=== PATIENT | female | born 1960 | race Hispanic/Latino ===

== ENCOUNTER 2019-05-06 17:54 | Inpatient (IN) | payer OTHER ==
[2019-05-06] MEDS ORDERED: levETIRAcetam 1000 MG/NS 0.75% 1,000 MG/100 ML BAG IV ONE (18:01)
--- NOTE | 2019-05-06 18:03 | Emergency Department Report ---
ED General Adult HPI - General Chief complaint: Weakness Stated complaint: SEIZURE Time Seen by Provider: 05/06/19 17:59 Source: patient, EMS (verbal report received from emergency medical services.EMS documentation not available at the time of chart dictation), RN notes reviewed Mode of arrival: Stretcher Limitations: Altered Mental Status - History of Present Illness Initial comments: The patient is a 59-year-old female. This patient is not known to this provider previously. The patient is brought to the hospital by emergency medical services for altered mental status and convulsive activity. EMS reports patient found on floor, unknown what her downtime is. She may have had a convulsive event. They report that the patient had a normal Accu-Chek in the field. Upon arrival to the emergency room, the patient is altered, somnolent, and hypoxic. She is moving 4 extremities spontaneously. Her Accu-Chek is within normal limits. Patient gradually improved her mental status. She states she does not remember seizing or passing out. She complains of central nonradiating chest pain. She denies additional injuries or complaints. She states she was admitted to [facility] for "my heart." She cannot further elaborate on this. -: Sudden Quality: other Consistency: other Improves with: other Worsens with: other - Related Data Allergies Allergy/AdvReac Type Severity Reaction Status Date / Time codeine AdvReac Hives Verified 05/06/19 19:37 ED Review of Systems ROS: Stated complaint: SEIZURE Other details as noted in HPI Comment: Unobtainable due to pts medical conditions Cardiovascular: chest pain ED Physical Exam - General Limitations: Altered Mental Status General appearance: lethargic, other (initially listless, difficult to arouse, gradually becomes more responsive.) - Head Head exam: Present: atraumatic, normocephalic - Eye Eye exam: Present: normal appearance, PERRL, EOMI - ENT ENT exam: Present: normal exam, mucous membranes moist, normal external ear exam - Neck Neck exam: Present: normal inspection, full ROM. Absent: tenderness, meningismus - Respiratory Respiratory exam: Present: decreased breath sounds. Absent: respiratory distress, rales, rhonchi, stridor - Cardiovascular Cardiovascular Exam: Present: regular rate, normal rhythm, normal heart sounds. Absent: bradycardia, tachycardia, irregular rhythm, systolic murmur, diastolic murmur, rubs, gallop - GI/Abdominal GI/Abdominal exam: Present: soft, normal bowel sounds. Absent: distended, tenderness, guarding, rigid, pulsatile mass - Rectal Rectal exam: Present: normal inspection - Extremities Exam Extremities exam: Present: normal inspection, full ROM, other (2+ pulses noted in the bilateral upper and lower extremities. There is no long bony tenderness. The muscular compartments are soft. The pelvis is stable.). Absent: pedal edema, calf tenderness - Back Exam Back exam: Present: normal inspection, full ROM. Absent: tenderness, CVA tenderness (R), CVA tenderness (L), paraspinal tenderness, vertebral tenderness - Neurological Exam Neurological exam: Present: altered, other (initially altered. As the patient becomes more awake, moving 4 extremities spontaneously, speaking in full sentences, following commands.) - Skin Skin exam: Present: warm, dry, intact, normal color. Absent: rash ED Course Vital Signs 05/06/19 05/06/19 05/06/19 18:01 19:44 19:45 Temperature 98.8 F Pulse Rate 90 Respiratory 18 Rate Blood Pressure Blood Pressure 113/78 [Left] O2 Sat by Pulse 93 92 92 Oximetry 05/06/19 05/06/19 05/06/19 20:00 20:16 23:10 Temperature Pulse Rate Respiratory Rate Blood Pressure 105/58 103/59 101/64 Blood Pressure [Left] O2 Sat by Pulse 94 91 Oximetry - Reevaluation(s) Reevaluation #1: 05/06/19 20:05 Differential diagnosis, including but not limited to: Seizure, pseudoseizure, convulsant, pneumonia, acute coronary syndrome, pulmonary embolism, avulsion secondary to drug use Assessment and plan: 59-year-old female, brought to the hospital by emergency medical services for altered mental status and convulsion, now awake, cooperative, but disorganized, somewhat hypoxic, moving 4 extremities and protecting her airway. We have recommended basic laboratory studies, CT scan of the brain, cervical spine, screening laboratory studies ordered, including d- dimer. Unsure if the patient is intoxicated versus delirious versus postictal. She is not violent or combative. She was given fluids and Keppra. We will reassess after the remainder of her data points have resulted. Reevaluation #2: 05/06/19 21:20 D-dimer is negative. CT scan of the brain is negative. EKG reviewed and appreciated. Reevaluation #3: 05/06/19 21:30 Case presented to Hospital physician, Dr. Bear, who has accepted the patient to the medical service. Reevaluation #4: 05/06/19 22:45 Old medical records are reviewed. The patient had a cardiac catheterization which showed normal coronary arteries, mild luminal irregularities, ejection fraction 15-20%, performed on 03/07/2019. She was presumptively diagnosed with a nonischemic cardiomyopathy. She also had an echocardiogram, which showed a dilated left ventricle, left ventricular hypertrophy, severe global LV hypokinesis, EF of 15-20%. ED Medical Decision Making - Lab Data Result diagrams: 05/06/19 18:38 05/06/19 18:38 Vital Signs 05/06/19 18:01 Temperature 98.8 F Pulse Rate 90 Respiratory 18 Rate Blood Pressure 113/78 [Left] O2 Sat by Pulse 93 Oximetry Lab Results 05/06/19 05/06/19 05/06/19 Range/Units 18:19 18:19 18:38 WBC (4.5-11.0) K/mm3 RBC (3.65-5.03) M/mm3 Hgb (10.1-14.3) gm/dl Hct (30.3-42.9) % MCV (79-97) fl MCH (28-32) pg MCHC (30-34) % RDW (13.2-15.2) % Plt Count (140-440) K/mm3 PT 12.1 L (12.2-14.9) Sec. INR 0.90 (0.87-1.13) APTT 29.2 (24.2-36.6) Sec. Sodium (137-145) mmol/L Potassium (3.6-5.0) mmol/L Chloride (98-107) mmol/L Carbon Dioxide (22-30) mmol/L Anion Gap mmol/L BUN (7-17) mg/dL Creatinine (0.7-1.2) mg/dL Estimated GFR ml/min BUN/Creatinine Ratio % Glucose (65-100) mg/dL Calcium (8.4-10.2) mg/dL Magnesium (1.7-2.3) mg/dL Total Bilirubin (0.1-1.2) mg/dL AST (5-40) units/L ALT (7-56) units/L Alkaline Phosphatase (35-129) units/L Ammonia (25-60) umol/L Total Creatine Kinase (30-135) units/L Total Protein (6.3-8.2) g/dL Albumin (3.9-5) g/dL Albumin/Globulin Ratio % TSH (0.270-4.200) mlU/mL Urine Color Yellow (Yellow) Urine Turbidity Clear (Clear) Urine pH 5.0 (5.0-7.0) Ur Specific [place] 1.021 (1.003-1.030) Urine Protein <15 mg/dl (Negative) mg/dL Urine Glucose (UA) Neg (Negative) mg/dL Urine Ketones Neg (Negative) mg/dL Urine Blood Neg (Negative) Urine Nitrite Neg (Negative) Urine Bilirubin Neg (Negative) Urine Urobilinogen 2.0 (<2.0) mg/dL Ur Leukocyte Esterase Neg (Negative) Urine WBC (Auto) 1.0 (0.0-6.0) /HPF Urine RBC (Auto) 1.0 (0.0-6.0) /HPF U Epithel Cells (Auto) 1.0 (0-13.0) /HPF Hyaline Casts 1 /LPF Urine Mucus Few /HPF Salicylates (2.8-20.0) mg/dL Urine Opiates Screen Presumptive negative Urine Methadone Screen Presumptive negative Acetaminophen (10.0-30.0) ug/mL Ur Barbiturates Screen Presumptive negative Ur Phencyclidine Scrn Presumptive negative Ur Amphetamines Screen Presumptive positive U Benzodiazepines Scrn Presumptive negative Urine Cocaine Screen Presumptive negative U Marijuana (THC) Screen Presumptive negative Drugs of Abuse Note Disclamer Plasma/Serum Alcohol (0-0.07) % 05/06/19 05/06/19 05/06/19 Range/Units 18:38 18:38 18:38 WBC (4.5-11.0) K/mm3 RBC (3.65-5.03) M/mm3 Hgb (10.1-14.3) gm/dl Hct (30.3-42.9) % MCV (79-97) fl MCH (28-32) pg MCHC (30-34) % RDW (13.2-15.2) % Plt Count (140-440) K/mm3 PT (12.2-14.9) Sec. INR (0.87-1.13) APTT (24.2-36.6) Sec. Sodium 145 (137-145) mmol/L Potassium 3.6 (3.6-5.0) mmol/L Chloride 105.2 (98-107) mmol/L Carbon Dioxide 19 L (22-30) mmol/L Anion Gap 24 mmol/L BUN 26 H (7-17) mg/dL Creatinine 1.1 (0.7-1.2) mg/dL Estimated GFR 51 ml/min BUN/Creatinine Ratio 24 % Glucose 181 H (65-100) mg/dL Calcium 9.3 (8.4-10.2) mg/dL Magnesium (1.7-2.3) mg/dL Total Bilirubin 0.30 (0.1-1.2) mg/dL AST 11 (5-40) units/L ALT 13 (7-56) units/L Alkaline Phosphatase 97 (35-129) units/L Ammonia 57.0 (25-60) umol/L Total Creatine Kinase (30-135) units/L Total Protein 6.9 (6.3-8.2) g/dL Albumin 4.3 (3.9-5) g/dL Albumin/Globulin Ratio 1.7 % TSH 0.492 (0.270-4.200) mlU/mL Urine Color (Yellow) Urine Turbidity (Clear) Urine pH (5.0-7.0) Ur Specific [place] (1.003-1.030) Urine Protein (Negative) mg/dL Urine Glucose (UA) (Negative) mg/dL Urine Ketones (Negative) mg/dL Urine Blood (Negative) Urine Nitrite (Negative) Urine Bilirubin (Negative) Urine Urobilinogen (<2.0) mg/dL Ur Leukocyte Esterase (Negative) Urine WBC (Auto) (0.0-6.0) /HPF Urine RBC (Auto) (0.0-6.0) /HPF U Epithel Cells (Auto) (0-13.0) /HPF Hyaline Casts /LPF Urine Mucus /HPF Salicylates (2.8-20.0) mg/dL Urine Opiates Screen Urine Methadone Screen Acetaminophen (10.0-30.0) ug/mL Ur Barbiturates Screen Ur Phencyclidine Scrn Ur Amphetamines Screen U Benzodiazepines Scrn Urine Cocaine Screen U Marijuana (THC) Screen Drugs of Abuse Note Plasma/Serum Alcohol (0-0.07) % 05/06/19 05/06/19 05/06/19 Range/Units 18:38 18:38 18:38 WBC (4.5-11.0) K/mm3 RBC (3.65-5.03) M/mm3 Hgb (10.1-14.3) gm/dl Hct (30.3-42.9) % MCV (79-97) fl MCH (28-32) pg MCHC (30-34) % RDW (13.2-15.2) % Plt Count (140-440) K/mm3 PT (12.2-14.9) Sec. INR (0.87-1.13) APTT (24.2-36.6) Sec. Sodium (137-145) mmol/L Potassium (3.6-5.0) mmol/L Chloride (98-107) mmol/L Carbon Dioxide (22-30) mmol/L Anion Gap mmol/L BUN (7-17) mg/dL Creatinine (0.7-1.2) mg/dL Estimated GFR ml/min BUN/Creatinine Ratio % Glucose (65-100) mg/dL Calcium (8.4-10.2) mg/dL Magnesium (1.7-2.3) mg/dL Total Bilirubin (0.1-1.2) mg/dL AST (5-40) units/L ALT (7-56) units/L Alkaline Phosphatase (35-129) units/L Ammonia (25-60) umol/L Total Creatine Kinase (30-135) units/L Total Protein (6.3-8.2) g/dL Albumin (3.9-5) g/dL Albumin/Globulin Ratio % TSH (0.270-4.200) mlU/mL Urine Color (Yellow) Urine Turbidity (Clear) Urine pH (5.0-7.0) Ur Specific [place] (1.003-1.030) Urine Protein (Negative) mg/dL Urine Glucose (UA) (Negative) mg/dL Urine Ketones (Negative) mg/dL Urine Blood (Negative) Urine Nitrite (Negative) Urine Bilirubin (Negative) Urine Urobilinogen (<2.0) mg/dL Ur Leukocyte Esterase (Negative) Urine WBC (Auto) (0.0-6.0) /HPF Urine RBC (Auto) (0.0-6.0) /HPF U Epithel Cells (Auto) (0-13.0) /HPF Hyaline Casts /LPF Urine Mucus /HPF Salicylates < 0.3 L (2.8-20.0) mg/dL Urine Opiates Screen Urine Methadone Screen Acetaminophen < 5.0 L (10.0-30.0) ug/mL Ur Barbiturates Screen Ur Phencyclidine Scrn Ur Amphetamines Screen U Benzodiazepines Scrn Urine Cocaine Screen U Marijuana (THC) Screen Drugs of Abuse Note Plasma/Serum Alcohol < 0.01 (0-0.07) % 05/06/19 05/06/19 Range/Units 18:38 18:38 WBC 8.4 (4.5-11.0) K/mm3 RBC 4.70 (3.65-5.03) M/mm3 Hgb 13.8 (10.1-14.3) gm/dl Hct 41.3 (30.3-42.9) % MCV 88 (79-97) fl MCH 29 (28-32) pg MCHC 33 (30-34) % RDW 14.7 (13.2-15.2) % Plt Count 177 (140-440) K/mm3 PT (12.2-14.9) Sec. INR (0.87-1.13) APTT (24.2-36.6) Sec. Sodium (137-145) mmol/L Potassium (3.6-5.0) mmol/L Chloride (98-107) mmol/L Carbon Dioxide (22-30) mmol/L Anion Gap mmol/L BUN (7-17) mg/dL Creatinine (0.7-1.2) mg/dL Estimated GFR ml/min BUN/Creatinine Ratio % Glucose (65-100) mg/dL Calcium (8.4-10.2) mg/dL Magnesium 2.00 (1.7-2.3) mg/dL Total Bilirubin (0.1-1.2) mg/dL AST (5-40) units/L ALT (7-56) units/L Alkaline Phosphatase (35-129) units/L Ammonia (25-60) umol/L Total Creatine Kinase 86 (30-135) units/L Total Protein (6.3-8.2) g/dL Albumin (3.9-5) g/dL Albumin/Globulin Ratio % TSH (0.270-4.200) mlU/mL Urine Color (Yellow) Urine Turbidity (Clear) Urine pH (5.0-7.0) Ur Specific [place] (1.003-1.030) Urine Protein (Negative) mg/dL Urine Glucose (UA) (Negative) mg/dL Urine Ketones (Negative) mg/dL Urine Blood (Negative) Urine Nitrite (Negative) Urine Bilirubin (Negative) Urine Urobilinogen (<2.0) mg/dL Ur Leukocyte Esterase (Negative) Urine WBC (Auto) (0.0-6.0) /HPF Urine RBC (Auto) (0.0-6.0) /HPF U Epithel Cells (Auto) (0-13.0) /HPF Hyaline Casts /LPF Urine Mucus /HPF Salicylates (2.8-20.0) mg/dL Urine Opiates Screen Urine Methadone Screen Acetaminophen (10.0-30.0) ug/mL Ur Barbiturates Screen Ur Phencyclidine Scrn Ur Amphetamines Screen U Benzodiazepines Scrn Urine Cocaine Screen U Marijuana (THC) Screen Drugs of Abuse Note Plasma/Serum Alcohol (0-0.07) % - EKG Data -: EKG Interpreted by Mt EKG shows normal: sinus rhythm Rate: normal - EKG Data When compared to previous EKG there are: previous EKG unavailable 05/06/19 21:19 There is no prior EKG available for comparison. The EKG shows a sinus rhythm, with a normal axis, QTC is prolonged, there is left ventricular hypertrophy, there is motion artifact, the EKG is abnormal, there are nonspecific T-wave abnormalities, the EKG is not consistent with ST elevation myocardial infarction. - Radiology Data Radiology results: report reviewed, image reviewed Print Report Referring Physician: DIANNE JARA Patient Name: DURAN VITALE Date of : 1960 Sex: Female Report Date: 2019-05-06 Report Status: Finalized Findings [facility] [address] [place] [address] XRay Report Signed Patient: DURAN VITALE MR#: [id number] 9 : 1960 Acct:[id number] Age/Sex: 59 / F ADM Date: 05/06/19 Loc: ED Attending Dr: Ordering Physician: DIANNE JARA MD Date of Service: 05/06/19 Procedure(s): XR chest 1V ap Accession Number(s): [id number] cc: DIANNE JARA MD Fluoro Time In Minutes: CHEST 1 VIEW 05/06/2019 6:06 PM INDICATION / CLINICAL INFORMATION: Altered Mental Status. COMPARISON: None available. FINDINGS: SUPPORT DEVICES: None. HEART / MEDIASTINUM: The heart is moderately enlarged. LUNGS / PLEURA: There is probable mild bibasilar atelectasis. No other significant pulmonary abnormality, pleural effusion or pneumothorax is seen. ADDITIONAL FINDINGS: No significant additional findings. IMPRESSION: Moderate cardiomegaly. Signer Name: Mickey Trujillo MD Signed: 05/06/2019 6:31 PM Workstation Name: [id number] Transcribed By: [place] Dictated By: Mickey Trujillo MD Electronically Authenticated By: Mickey Trujillo MD Signed Date/Time: 05/06/19 1831 Critical care attestation.: If time is entered above; I have spent that time in minutes in the direct care of this critically ill patient, excluding procedure time. ED Disposition Clinical Impression: History of convulsions, History of chest pain, Non-ischemic cardiomyopathy Disposition: OP ADMIT IP TO THIS HOSP Is pt being admited?: Yes Does the pt Need Aspirin: Yes Condition: Serious
--- NOTE | 2019-05-06 18:35 | XRay Report ---
CHEST 1 VIEW 05/06/2019 6:06 PM INDICATION / CLINICAL INFORMATION: Altered Mental Status. COMPARISON: None available. FINDINGS: SUPPORT DEVICES: None. HEART / MEDIASTINUM: The heart is moderately enlarged. LUNGS / PLEURA: There is probable mild bibasilar atelectasis. No other significant pulmonary abnormal ity, pleural effusion or pneumothorax is seen. ADDITIONAL FINDINGS: No significant additional findings. IMPRESSION: Moderate cardiomegaly. Signer Name: Mickey Trujillo MD Signed: 05/06/2019 6:31 PM Workstation Name: [id number]
[2019-05-06 18:36] LABS: Bilirubin,Urine NEG (Negative); Blood,Urine NEG (Negative); Color,Urine Yellow (Yellow); Hyaline Casts,Urine 1 /LPF; Mucus,Urine FEW /HPF; Protein,Urine <15 mg/dL mg/dL (Negative)
[2019-05-06 18:39] LABS: Benzodiazepines Screen,Urine PRESUMPTIVE NEGATIVE; Cannabinoid Screen,Urine PRESUMPTIVE NEGATIVE; Cocaine Screen,Urine PRESUMPTIVE NEGATIVE; Methadone Screen,Urine PRESUMPTIVE NEGATIVE; Opiate Screen,Urine PRESUMPTIVE NEGATIVE
[2019-05-06 18:59] LABS: Hematocrit 41.3 % (30.3-42.9); Hemoglobin 13.8 gm/dl (10.1-14.3); Mean Corpuscular HGB Conc 33 % (30-34); Mean Corpuscular Volume 88 fl (79-97); Platelet Count 177 K/mm3 (140-440); Red Cell Distribution Width 14.7 % (13.2-15.2)
[2019-05-06 19:10] LABS: INR 0.9 (0.87-1.13)
[2019-05-06 19:12] LABS: Partial Thromboplastin Time 29.2 Sec. (24.2-36.6)
[2019-05-06 19:21] LABS: Amphetamine Screen,Urine PRESUMPTIVE POSITIVE
[2019-05-06 19:41] LABS: Albumin 4.3 g/dL (3.9-5); Calcium 9.3 mg/dL (8.4-10.2)
[2019-05-06] MEDS ORDERED: SODIUM CHLORIDE 0.9% 250ML 250 ML IV ONE (20:01)
--- NOTE | 2019-05-06 20:56 | Cat Scan Report ---
CT HEAD WITHOUT CONTRAST INDICATION / CLINICAL INFORMATION: Altered Mental Status. Seizure. TECHNIQUE: All CT scans at this location are performed using CT dose reduction for ALARA by means of automated e xposure control. COMPARISON: None available. FINDINGS: HEMORRHAGE: No evidence of intracranial hemorrhage or extra-axial fluid collection. EXTRA-AXIAL SPACES: Cortical sulci, sylvian fissures and basilar cisterns have an unremarkable appear ance. VENTRICULAR SYSTEM: The ventricular system is of normal size and configuration. CEREBRAL PARENCHYMA: No areas of abnormal brain parenchymal attenuation are identified. There is no i ndication of recent infarction. MIDLINE SHIFT OR HERNIATION: There is no mass effect. CEREBELLUM / BRAINSTEM: Brainstem and cerebellum have an unremarkable appearance. INTRACRANIAL VESSELS:No abnormalities are identified on this noncontrast head CT. ORBITS: visualized portions of the orbits have an unremarkable appearance. SOFT TISSUES of HEAD: No significant abnormality. CALVARIUM: Evaluation of bone windows reveals no abnormalities. PARANASAL SINUSES / MASTOID AIR CELLS: Paranasal sinuses are free from inflammatory mucosal disease. Mastoid air cells are normally pneumatized. IMPRESSION: 1. No acute intracranial abnormality. Signer Name: Aneudy Martínez MD Signed: 05/06/2019 8:52 PM Workstation Name: [id number]
--- NOTE | 2019-05-06 21:24 | Cat Scan Report ---
CT cervical spine wo con INDICATION / CLINICAL INFORMATION: 59 years Female; trauma ams sz. TECHNIQUE: Axial CT images of the cervical spine were obtained. Sagittal and coronal reformatted images were pr oduced. All CT scans at this location are performed using CT dose reduction for ALARA by means of aut omated exposure control. COMPARISON: None available. FINDINGS: POST-SURGICAL CHANGES: None. ALIGNMENT: This mild reversal of the cervical lordosis with slight anterolisthesis at C3-4 and C4-5 w hich appear to be on a degenerative basis given the associated facet joint hypertrophy. VERTEBRAE: There is no CT evidence of acute fracture involving the cervical spine. There is signific ant disc space narrowing at C5-6 and C6-7 with associated degenerative endplate changes. INTRAVERTEBRAL DISCS: The right facet joint hypertrophy at C2-3 results in moderate right neural fora sae narrowing at. There is prominent facet joint hypertrophy at C3-4 with marked right and moderate left foraminal narrowing at. There is also marked right foraminal narrowing at C4-5. The posterior spondylosis at C5-6 effaces the ventral subarachnoid space. There is marked neural fora sae narrowing, greater on the left. There is also marked foraminal narrowing bilaterally at C6-7 wi th effacement of the left lateral recess. PARASPINAL SOFT TISSUES: There are moderate emphysematous changes involving the visualized upper lung s. No definitive prevertebral soft tissue fluid collections are identified at. ADDITIONAL FINDINGS: None. IMPRESSION: 1. There is no definitive CT evidence of acute fracture involving the cervical spine.. 2. There are multilevel degenerative changes as detailed above. Signer Name: Alex Mcclellan MD Signed: 05/06/2019 9:20 PM Workstation Name: [id number]
[2019-05-06] MEDS ORDERED: ONDANSETRON 4 MG/2 ML INJ IV PRN (22:13)
[2019-05-06] MEDS ORDERED: ACETAMINOPHEN 325 MG TAB PO PRN (22:13)
[2019-05-06] MEDS ORDERED: SODIUM CHLORIDE 0.9% 1000 ML 1,000 ML IV SCH (22:15)
[2019-05-06] MEDS ORDERED: NITROGLYCERIN 0.4 MG TAB SUBL SL PRN (22:15)
--- NOTE | 2019-05-07 02:07 | History and Physical Report ---
<CHELSEY MOSER - Last Filed: 05/07/19 02:02> History of Present Illness Date of examination: 05/06/19 Date of admission: 05/06/19 22:17 Chief complaint: AMS and Seizure History of present illness: 59-year-old female with history of tobacco abuse, heart failure with EF 15-20%, chronic back pain, asthma who presents [facility] ED via EMS complaints of altered mental status and seizure. Of note history is provided by patient, review of medical records and EMS report. Of She states she was at a friend's house when she started feeling weird and dizzy she placed her head on the table and when she woke up she was in the hospital on a stretcher. Her EMS report patient was found on the floor with an unknown downtime and hypoxic. There is question/concern for seizure activity. She was transported to our facility for further evaluation and treatment. Upon arrival to her facility patient was lethargic, unable to answer questions, and able to move extremities. As patient became more arouse she complained of right sided chest pain with radiation to back. Patient states that pain originated under right breast with radiation to right shoulder. She describes the pain as sharp and rates it 5/10. At the time of my examination patient is sitting up in stretcher alert and oriented 3. She states that her chest pain has resolved. She denies nausea, vomiting, diaphoresis, headache, or history of seizures. She states that she was admitted to [facility] approximately 3 weeks ago at which time she was diagnosed with heart failure with ejection fraction of 10-15%. Patient was advised to follow-up with cardiology as outpatient. Past History Past Medical History: heart failure (EF 15-20%), other (Asthma, bronchitis, chronic back pain) Past Surgical History: , hysterectomy Social history: single (has a roommate), smoking (current everday smoker smokes 1/2 pack per day) Family history: no significant family history Medications and Allergies Allergies Allergy/AdvReac Type Severity Reaction Status Date / Time codeine AdvReac Hives Verified 05/06/19 19:37 Active Meds: Active Medications Acetaminophen (Tylenol) 650 mg PO Q4H PRN PRN Reason: Pain MILD(1-3)/Fever >100.5/SAMANO Aspirin (Baby Aspirin) 81 mg PO QDAY [facility] Atorvastatin Calcium (Lipitor) 40 mg PO QHS [facility] Heparin Sodium (Porcine) (Heparin) 5,000 unit SUB-Q Q12HR [facility] Levetiracetam 500 mg/ Dextrose 105 mls @ 400 mls/hr IV Q12HR [facility] Morphine Sulfate (Morphine) 2 mg IV Q4H PRN PRN Reason: Pain, Moderate (4-6) Nicotine (Habitrol) 14 mg TD QDAY [facility] Nitroglycerin (Nitrostat) 0.4 mg SL Q5M PRN PRN Reason: Chest Pain Ondansetron HCl (Zofran) 4 mg IV Q8H PRN PRN Reason: Nausea And Vomiting Sodium Chloride (Sodium Chloride Flush Syringe 10 Ml) 10 ml IV BID [facility] Sodium Chloride (Sodium Chloride Flush Syringe 10 Ml) 10 ml IV PRN PRN PRN Reason: LINE FLUSH Review of Systems All systems: negative Cardiovascular: chest pain Exam - Physical Exam Narrative exam: Physical exam General appearance: Present: No acute distress, alert and oriented 3, well developed, adult female - EENT Eyes: Present: PERRL, EOM intact ENT: hearing intact, missing teeth, wears dentures - Neck Neck: Present: supple, normal ROM - Respiratory Respiratory effort: Non-labored Respiratory: Diminished bases - Cardiovascular Heart rate: 92 (bpm) Rhythm: Sinus rhythm, probable left atrial enlargement, nonspecific T-wave abnormalities Heart Sounds: Present: S1 & S2. Absent: rub, click - Extremities Extremities: no ischemia, pulses intact, - Peripheral Assessment Peripheral Pulses: within normal limits - Abdominal General gastrointestinal: soft, non-tender, normal bowel sounds - Integumentary Integumentary: Present: warm, dry - Musculoskeletal Musculoskeletal: Able to move all extremities -Neurological Neurological: CN II-XII intact - Psychiatric Psychiatric: cooperative - Constitutional Vitals: Temp Pulse Resp BP Pulse Ox 98.8 F 90 18 101/64 91 05/06/19 18:01 05/06/19 18:01 05/06/19 18:01 05/06/19 23:10 05/06/19 20:16 Results - Labs CBC & Chem 7: 05/06/19 18:38 05/06/19 18:38 Labs: Laboratory Last Values WBC 8.4 K/mm3 (4.5-11.0) 05/06/19 18:38 RBC 4.70 M/mm3 (3.65-5.03) 05/06/19 18:38 Hgb 13.8 gm/dl (10.1-14.3) 05/06/19 18:38 Hct 41.3 % (30.3-42.9) 05/06/19 18:38 MCV 88 fl (79-97) 05/06/19 18:38 MCH 29 pg (28-32) 05/06/19 18:38 MCHC 33 % (30-34) 05/06/19 18:38 RDW 14.7 % (13.2-15.2) 05/06/19 18:38 Plt Count 177 K/mm3 (140-440) 05/06/19 18:38 PT 12.1 Sec. (12.2-14.9) L 05/06/19 18:38 INR 0.90 (0.87-1.13) 05/06/19 18:38 APTT 29.2 Sec. (24.2-36.6) 05/06/19 18:38 D-Dimer 199.30 ng/mlDDU (0-234) 05/06/19 18:38 Sodium 145 mmol/L (137-145) 05/06/19 18:38 Potassium 3.6 mmol/L (3.6-5.0) 05/06/19 18:38 Chloride 105.2 mmol/L (98-107) 05/06/19 18:38 Carbon Dioxide 19 mmol/L (22-30) L 05/06/19 18:38 Anion Gap 24 mmol/L 05/06/19 18:38 BUN 26 mg/dL (7-17) H 05/06/19 18:38 Creatinine 1.1 mg/dL (0.7-1.2) 05/06/19 18:38 Estimated GFR 51 ml/min 05/06/19 18:38 BUN/Creatinine Ratio 24 % 05/06/19 18:38 Glucose 181 mg/dL (65-100) H 05/06/19 18:38 Calcium 9.3 mg/dL (8.4-10.2) 05/06/19 18:38 Magnesium 2.00 mg/dL (1.7-2.3) 05/06/19 18:38 Total Bilirubin 0.30 mg/dL (0.1-1.2) 05/06/19 18:38 AST 11 units/L (5-40) 05/06/19 18:38 ALT 13 units/L (7-56) 05/06/19 18:38 Alkaline Phosphatase 97 units/L (35-129) 05/06/19 18:38 Ammonia 57.0 umol/L (25-60) 05/06/19 18:38 Total Creatine Kinase 86 units/L (30-135) 05/06/19 18:38 Troponin T < 0.010 ng/mL (0.00-0.029) 05/07/19 00:24 NT-Pro-B Natriuret Pep 1371 pg/mL (0-900) H 05/06/19 20:06 Total Protein 6.9 g/dL (6.3-8.2) 05/06/19 18:38 Albumin 4.3 g/dL (3.9-5) 05/06/19 18:38 Albumin/Globulin Ratio 1.7 % 05/06/19 18:38 TSH 0.492 mlU/mL (0.270-4.200) 05/06/19 18:38 Urine Color Yellow (Yellow) 05/06/19 18:19 Urine Turbidity Clear (Clear) 05/06/19 18:19 Urine pH 5.0 (5.0-7.0) 05/06/19 18:19 Ur Specific Blakely 1.021 (1.003-1.030) 05/06/19 18:19 Urine Protein <15 mg/dl mg/dL (Negative) 05/06/19 18:19 Urine Glucose (UA) Neg mg/dL (Negative) 05/06/19 18:19 Urine Ketones Neg mg/dL (Negative) 05/06/19 18:19 Urine Blood Neg (Negative) 05/06/19 18:19 Urine Nitrite Neg (Negative) 05/06/19 18:19 Urine Bilirubin Neg (Negative) 05/06/19 18: Urine Urobilinogen 2.0 mg/dL (<2.0) 05/06/19 18:19 Ur Leukocyte Esterase Neg (Negative) 05/06/19 18:19 Urine WBC (Auto) 1.0 /HPF (0.0-6.0) 05/06/19 18:19 Urine RBC (Auto) 1.0 /HPF (0.0-6.0) 05/06/19 18:19 U Epithel Cells (Auto) 1.0 /HPF (0-13.0) 05/06/19 18:19 Hyaline Casts 1 /LPF 05/06/19 18:19 Urine Mucus Few /HPF 05/06/19 18:19 Salicylates < 0.3 mg/dL (2.8-20.0) L 05/06/19 18:38 Urine Opiates Screen Presumptive negative 05/06/19 18:19 Urine Methadone Screen Presumptive negative 05/06/19 18:19 Acetaminophen < 5.0 ug/mL (10.0-30.0) L 05/06/19 18:38 Ur Barbiturates Screen Presumptive negative 05/06/19 18:19 Ur Phencyclidine Scrn Presumptive negative 05/06/19 18:19 Ur Amphetamines Screen Presumptive positive 05/06/19 18:19 U Benzodiazepines Scrn Presumptive negative 05/06/19 18:19 Urine Cocaine Screen Presumptive negative 05/06/19 18:19 U Marijuana (THC) Screen Presumptive negative 05/06/19 18:19 Drugs of Abuse Note Disclamer 05/06/19 18:19 Plasma/Serum Alcohol < 0.01 % (0-0.07) 05/06/19 18:38 - Imaging and Cardiology Imaging and Cardiology: CXR: FINDINGS: SUPPORT DEVICES: None. HEART / MEDIASTINUM: The heart is moderately enlarged. LUNGS / PLEURA: There is probable mild bibasilar atelectasis. No other significant pulmonary abnormality, pleural effusion or pneumothorax is seen. ADDITIONAL FINDINGS: No significant additional findings. IMPRESSION: Moderate cardiomegaly. CT Cervical Spine: FINDINGS: POST-SURGICAL CHANGES: None. ALIGNMENT: This mild reversal of the cervical lordosis with slight anterolisthesis at C3-4 and C4-5 which appear to be on a degenerative basis given the associated facet joint hypertrophy. VERTEBRAE: There is no CT evidence of acute fracture involving the cervical spine. There is significant disc space narrowing at C5-6 and C6-7 with associated degenerative endplate changes. INTRAVERTEBRAL DISCS: The right facet joint hypertrophy at C2-3 results in moderate right neural foraminal narrowing at. There is prominent facet joint hypertrophy at C3-4 with marked right and moderate left foraminal narrowing at. There is also marked right foraminal narrowing at C4-5. The posterior spondylosis at C5-6 effaces the ventral subarachnoid space. There is marked neural foraminal narrowing, greater on the left. There is also marked foraminal olga rowing bilaterally at C6-7 with effacement of the left lateral recess. PARASPINAL SOFT TISSUES: There are moderate emphysematous changes involving the visualized upper lungs. No definitive prevertebral soft tissue fluid collections are identified at. ADDITIONAL FINDINGS: None. IMPRESSION: 1. There is no definitive CT evidence of acute fracture involving the cervical spine.. 2. There are multilevel degenerative changes as detailed above. CT Head: FINDINGS: HEMORRHAGE: No evidence of intracranial hemorrhage or extra-axial fluid collection. EXTRA-AXIAL SPACES: Cortical sulci, sylvian fissures and basilar cisterns have an unremarkable appearance. VENTRICULAR SYSTEM: The ventricular system is of normal size and configuration. CEREBRAL PARENCHYMA: No areas of abnormal brain parenchymal attenuation are identified. There is no indication of recent infarction. MIDLINE SHIFT OR HERNIATION: There is no mass effect. CEREBELLUM / BRAINSTEM: Brainstem and cerebellum have an unremarkable appearance. INTRACRANIAL VESSELS:No abnormalities are identified on this noncontrast head CT. ORBITS: visualized portions of the orbits have an unremarkable appearance. SOFT TISSUES of HEAD: No significant abnormality. CALVARIUM: Evaluation of bone windows reveals no abnormalities. PARANASAL SINUSES / MASTOID AIR CELLS: Paranasal sinuses are free from inflammatory mucosal disease. Mastoid air cells are normally pneumatized. IMPRESSION: 1. No acute intracranial abnormality. Source: patient, EMS (verbal report received from emergency medical services.EMS documentation not available at the time of chart dictation), RN notes reviewed Mode of arrival: Stretcher Limitations: Altered Mental Status - History of Present Illness Initial comments: Assessment and Plan Assessment and plan: 59-year-old female with history of tobacco abuse, heart failure with EF 15-20%, chronic back pain, asthma who presents [facility] ED via EMS complaints of altered mental status and seizure. Seizures -No onset, no prior history of seizure inpast -UDS positive for amphetamine -Pt denies amphetamine use -Experience witnessed seizure 1 -Continue IV Keppra 500 mg twice a day -Neurology consulted Acute Encephalopathy -likely secondary to seizure -Neuro checks -Continue supportive care Acute Chest Pain -Initiate chest pain protocol -Continuous telemetry monitoring -Continue supportive care -Pain mgmt -Troponin negative x 2 , -EKG unrevealing for acute ischemic abnormalities -Hx of HF with EF 15-20% -Cardiology consulted CHF -EF of 15-20% seen on Echo on 03/07/2019 -BNP elevated at 1371 -Troponin negative 2 -CXR shows moderate cardiomegaly -Resume HF meds (BB, ALLISON, Lasix) -Cardiology consulted DVT PPX -on Heparin Advance Directives: No VTE prophylaxis?: Chemical Plan of care discussed with patient/family: Yes <SUJATA SILVA - Last Filed: 05/07/19 02:35> History of Present Illness Date of admission: 05/06/19 22:17 Medications and Allergies Active Meds: Active Medications Acetaminophen (Tylenol) 650 mg PO Q4H PRN PRN Reason: Pain MILD(1-3)/Fever >100.5/SAMANO Aspirin (Baby Aspirin) 81 mg PO QDAY [facility] Atorvastatin Calcium (Lipitor) 40 mg PO QHS [facility] Carvedilol (Coreg) 3.125 mg PO BID [facility] Furosemide (Lasix) 40 mg PO QDAY [facility] Heparin Sodium (Porcine) (Heparin) 5,000 unit SUB-Q Q12HR [facility] Levetiracetam 500 mg/ Dextrose 105 mls @ 400 mls/hr IV Q12HR [facility] Lisinopril (Zestril) 2.5 mg PO QDAY [facility] Morphine Sulfate (Morphine) 2 mg IV Q4H PRN PRN Reason: Pain, Moderate (4-6) Nicotine (Habitrol) 14 mg TD QDAY [facility] Nitroglycerin (Nitrostat) 0.4 mg SL Q5M PRN PRN Reason: Chest Pain Ondansetron HCl (Zofran) 4 mg IV Q8H PRN PRN Reason: Nausea And Vomiting Sodium Chloride (Sodium Chloride Flush Syringe 10 Ml) 10 ml IV BID [facility] Sodium Chloride (Sodium Chloride Flush Syringe 10 Ml) 10 ml IV PRN PRN PRN Reason: LINE FLUSH Exam - Constitutional Vitals: Temp Pulse Resp BP Pulse Ox 98.8 F 90 18 101/64 91 05/06/19 18:01 05/06/19 18:01 05/06/19 18:01 05/06/19 23:10 05/06/19 20:16 Results - Labs CBC & Chem 7: 05/06/19 18:38 05/06/19 18:38 Labs: Laboratory Last Values WBC 8.4 K/mm3 (4.5-11.0) 05/06/19 18:38 RBC 4.70 M/mm3 (3.65-5.03) 05/06/19 18:38 Hgb 13.8 gm/dl (10.1-14.3) 05/06/19 18:38 Hct 41.3 % (30.3-42.9) 05/06/19 18:38 MCV 88 fl (79-97) 05/06/19 18:38 MCH 29 pg (28-32) 05/06/19 18:38 MCHC 33 % (30-34) 05/06/19 18:38 RDW 14.7 % (13.2-15.2) 05/06/19 18:38 Plt Count 177 K/mm3 (140-440) 05/06/19 18:38 PT 12.1 Sec. (12.2-14.9) L 05/06/19 18:38 INR 0.90 (0.87-1.13) 05/06/19 18:38 APTT 29.2 Sec. (24.2-36.6) 05/06/19 18:38 D-Dimer 199.30 ng/mlDDU (0-234) 05/06/19 18:38 Sodium 145 mmol/L (137-145) 05/06/19 18:38 Potassium 3.6 mmol/L (3.6-5.0) 05/06/19 18:38 Chloride 105.2 mmol/L (98-107) 05/06/19 18:38 Carbon Dioxide 19 mmol/L (22-30) L 05/06/19 18:38 Anion Gap 24 mmol/L 05/06/19 18:38 BUN 26 mg/dL (7-17) H 05/06/19 18:38 Creatinine 1.1 mg/dL (0.7-1.2) 05/06/19 18:38 Estimated GFR 51 ml/min 05/06/19 18:38 BUN/Creatinine Ratio 24 % 05/06/19 18:38 Glucose 181 mg/dL (65-100) H 05/06/19 18:38 Hemoglobin A1c 7.5 % (4-6) H 05/06/19 23:11 Calcium 9.3 mg/dL (8.4-10.2) 05/06/19 18:38 Magnesium 2.00 mg/dL (1.7-2.3) 05/06/19 18:38 Total Bilirubin 0.30 mg/dL (0.1-1.2) 05/06/19 18:38 AST 11 units/L (5-40) 05/06/19 18:38 ALT 13 units/L (7-56) 05/06/19 18:38 Alkaline Phosphatase 97 units/L (35-129) 05/06/19 18:38 Ammonia 57.0 umol/L (25-60) 05/06/19 18:38 Total Creatine Kinase 86 units/L (30-135) 05/06/19 18:38 Troponin T < 0.010 ng/mL (0.00-0.029) 05/07/19 00:24 NT-Pro-B Natriuret Pep 1371 pg/mL (0-900) H 05/06/19 20:06 Total Protein 6.9 g/dL (6.3-8.2) 05/06/19 18:38 Albumin 4.3 g/dL (3.9-5) 05/06/19 18:38 Albumin/Globulin Ratio 1.7 % 05/06/19 18:38 TSH 0.492 mlU/mL (0.270-4.200) 05/06/19 18:38 Urine Color Yellow (Yellow) 05/06/19 18:19 Urine Turbidity Clear (Clear) 05/06/19 18:19 Urine pH 5.0 (5.0-7.0) 05/06/19 18:19 Ur Specific Blakely 1.021 (1.003-1.030) 05/06/19 18:19 Urine Protein <15 mg/dl mg/dL (Negative) 05/06/19 18:19 Urine Glucose (UA) Neg mg/dL (Negative) 05/06/19 18: Urine Ketones Neg mg/dL (Negative) 05/06/19 18: Urine Blood Neg (Negative) 05/06/19 18:19 Urine Nitrite Neg (Negative) 05/06/19 18:19 Urine Bilirubin Neg (Negative) 05/06/19 18:19 Urine Urobilinogen 2.0 mg/dL (<2.0) 05/06/19 18:19 Ur Leukocyte Esterase Neg (Negative) 05/06/19 18:19 Urine WBC (Auto) 1.0 /HPF (0.0-6.0) 05/06/19 18:19 Urine RBC (Auto) 1.0 /HPF (0.0-6.0) 05/06/19 18:19 U Epithel Cells (Auto) 1.0 /HPF (0-13.0) 05/06/19 18:19 Hyaline Casts 1 /LPF 05/06/19 18:19 Urine Mucus Few /HPF 05/06/19 18:19 Salicylates < 0.3 mg/dL (2.8-20.0) L 05/06/19 18:38 Urine Opiates Screen Presumptive negative 05/06/19 18:19 Urine Methadone Screen Presumptive negative 05/06/19 18:19 Acetaminophen < 5.0 ug/mL (10.0-30.0) L 05/06/19 18:38 Ur Barbiturates Screen Presumptive negative 05/06/19 18:19 Ur Phencyclidine Scrn Presumptive negative 05/06/19 18:19 Ur Amphetamines Screen Presumptive positive 05/06/19 18:19 U Benzodiazepines Scrn Presumptive negative 05/06/19 18:19 Urine Cocaine Screen Presumptive negative 05/06/19 18:19 U Marijuana (THC) Screen Presumptive negative 05/06/19 18:19 Drugs of Abuse Note Disclamer 05/06/19 18:19 Plasma/Serum Alcohol < 0.01 % (0-0.07) 05/06/19 18:38 Assessment and Plan Assessment and plan: Patient seen and examined, agree with plan as stated above. Recent workup at [facility], records requested, please follow
[2019-05-07 03:47] LABS: Basophils % (Auto) 0.5 % (0.0-1.8); Eosinophils % (Auto) 0.2 % (0.0-4.3); Hematocrit 37.7 % (30.3-42.9); Hemoglobin 12.4 gm/dl (10.1-14.3); Lymphocytes # (Auto) 1.6 K/mm3 (1.2-5.4); Lymphocytes % (Auto) 24.6 % (13.4-35.0); Mean Corpuscular HGB Conc 33 % (30-34); Mean Corpuscular Volume 88 fl (79-97); Monocytes # (Auto) 0.3 K/mm3 (0.0-0.8); Monocytes % (Auto) 4.3 % (0.0-7.3); Platelet Count 200 K/mm3 (140-440); Red Blood Count 4.27 M/mm3 (3.65-5.03); Red Cell Distribution Width 14.5 % (13.2-15.2)
[2019-05-07 04:43] LABS: BUN/Creatinine Ratio 26; Blood Urea Nitrogen 21 mg/dL (7-17); Chol/HDL Ratio 2.11 %; HDL Cholesterol 52 mg/dL (40-59); Hemolysis Index 9; LDL Cholesterol,Direct 57 mg/dL (50-130)
[2019-05-07] MEDS ORDERED: SODIUM CHLORIDE 0.9% 250ML 250 ML IV ONE (04:44)
[2019-05-07] MEDS: HEPARIN 5,000 UNIT/1 ML VIAL SUB-Q SCH ×2 (09:29→22:50)
[2019-05-07] MEDS: ASPIRIN 81 MG TAB CHEW PO SCH (09:29)
[2019-05-07] MEDS: NICOTINE 14 MG/24 HR PATCH TD SCH (09:29)
[2019-05-07] MEDS: carvediloL 3.125 MG TAB PO SCH ×2 (10:00→22:50)
[2019-05-07] MEDS ORDERED: ENOXAPARIN 30 MG/0.3 ML INJ SUB-Q SCH (10:00)
[2019-05-07] MEDS ORDERED: levETIRAcetam 500 MG in DEXTROSE 5% IN WATER 100 ML IV SCH (10:00)
[2019-05-07] MEDS ORDERED: LISINOPRIL 5 MG TAB PO SCH (10:00)
[2019-05-07] MEDS ORDERED: FUROSEMIDE 40 MG TAB PO SCH ×2 (10:00→14:07)
--- NOTE | 2019-05-07 11:15 | Consultation ---
<PAUL HOYOS - Last Filed: 05/07/19 11:03> History of Present Illness Consult date: 05/07/19 Consult reason: congestive heart failure History of present illness: This is a 59-year old woman that has a history of nonischemic cardiomyopathy by recent cardiac cath that reports no significant coronary artery disease but a decreased left ventricular systolic function, ejection fraction 15-20%. Patient was brought to this hospital and admitted with seizures. Patient denies a history of seizure disorder. Patient denies chest pain but reports shortness of breath, coughs and congestion. She admits to continued tobacco abuse. A chest x- ray shows cardiomegaly but no evidence of interstitial edema. A cardiac consultation has been requested for CHF evaluation and management. Past History Past Medical History: heart failure (EF 15-20%), other (Asthma, bronchitis, chronic back pain) Past Surgical History: , hysterectomy Social history: single (has a roommate), smoking (current everday smoker smokes 1/2 pack per day) Family history: no significant family history Medications and Allergies Allergies Allergy/AdvReac Type Severity Reaction Status Date / Time codeine AdvReac Hives Verified 05/06/19 19:37 Active Meds: Active Medications Acetaminophen (Tylenol) 650 mg PO Q4H PRN PRN Reason: Pain MILD(1-3)/Fever >100.5/SAMANO Aspirin (Baby Aspirin) 81 mg PO QDAY [facility] Last Admin: 05/07/19 09:29 Dose: 81 mg Documented by: Atorvastatin Calcium (Lipitor) 40 mg PO QHS [facility] Carvedilol (Coreg) 3.125 mg PO BID [facility] Furosemide (Lasix) 40 mg PO QDAY [facility] Heparin Sodium (Porcine) (Heparin) 5,000 unit SUB-Q Q12HR [facility] Last Admin: 05/07/19 09:29 Dose: 5,000 unit Documented by: Levetiracetam 500 mg/ Dextrose 105 mls @ 400 mls/hr IV Q12HR [facility] Last Admin: 05/07/19 10:53 Dose: 400 mls/hr Documented by: Lisinopril (Zestril) 2.5 mg PO QDAY [facility] Last Admin: 05/07/19 09:30 Dose: Not Given Documented by: Morphine Sulfate (Morphine) 2 mg IV Q4H PRN PRN Reason: Pain, Moderate (4-6) Nicotine (Habitrol) 14 mg TD QDAY [facility] Last Admin: 05/07/19 09:29 Dose: 14 mg Documented by: Nitroglycerin (Nitrostat) 0.4 mg SL Q5M PRN PRN Reason: Chest Pain Ondansetron HCl (Zofran) 4 mg IV Q8H PRN PRN Reason: Nausea And Vomiting Sodium Chloride (Sodium Chloride Flush Syringe 10 Ml) 10 ml IV BID [facility] Last Admin: 05/07/19 09:30 Dose: 10 ml Documented by: Sodium Chloride (Sodium Chloride Flush Syringe 10 Ml) 10 ml IV PRN PRN PRN Reason: LINE FLUSH Physical Examination Vital Signs Temp Pulse Resp BP Pulse Ox 98.8 F 90 18 113/78 93 05/06/19 18:01 05/06/19 18:01 05/06/19 18:01 05/06/19 18:01 05/06/19 18:01 General appearance: no acute distress HEENT: Positive: PERRL Neck: Positive: trachea midline Cardiac: Positive: Reg Rate and Rhythm Lungs: Positive: Decreased Breath Sounds Neuro: Positive: Grossly Intact Extremities: Absent: edema Results 05/07/19 03:10 05/07/19 03:10 Cardiac Enzymes 05/06/19 Range/Units 18:38 AST 11 (5-40) units/L Coagulation 05/06/19 Range/Units 18:38 PT 12.1 L (12.2-14.9) Sec. INR 0.90 (0.87-1.13) APTT 29.2 (24.2-36.6) Sec. Lipids 05/07/19 Range/Units 03:10 Triglycerides 39 (2-149) mg/dL Cholesterol 110 (50-199) mg/dL HDL Cholesterol 52 (40-59) mg/dL Cholesterol/HDL Ratio 2.11 % CBC 05/06/19 05/07/19 Range/Units 18:38 03:10 WBC 8.4 6.3 (4.5-11.0) K/mm3 RBC 4.70 4.27 (3.65-5.03) M/mm3 Hgb 13.8 12.4 (10.1-14.3) gm/dl Hct 41.3 37.7 (30.3-42.9) % Plt Count 177 200 (140-440) K/mm3 Lymph # 1.6 (1.2-5.4) K/mm3 Menard # 0.3 (0.0-0.8) K/mm3 Eos # 0.0 (0.0-0.4) K/mm3 Baso # 0.0 (0.0-0.1) K/mm3 Comprehensive Metabolic Panel 05/06/19 05/07/19 Range/Units 18:38 03:10 Sodium 145 142 (137-145) mmol/L Potassium 3.6 3.6 (3.6-5.0) mmol/L Chloride 105.2 102.5 (98-107) mmol/L Carbon Dioxide 19 L 20 L (22-30) mmol/L BUN 26 H 21 H (7-17) mg/dL Creatinine 1.1 0.8 (0.7-1.2) mg/dL Glucose 181 H 259 H (65-100) mg/dL Calcium 9.3 9.0 (8.4-10.2) mg/dL AST 11 (5-40) units/L ALT 13 (7-56) units/L Alkaline Phosphatase 97 (35-129) units/L Total Protein 6.9 (6.3-8.2) g/dL Albumin 4.3 (3.9-5) g/dL Assessment and Plan - Patient Problems (1) Non-ischemic cardiomyopathy Current Visit: Yes Status: Acute Plan to address problem: Hx of Nonischemic cardiomyopathy -pt is euvolemic [facility] 03/2019: no significant CAD, EF 15-20% Recommendations: Daily weight. Fluid/sodium restrictions. Medical therapy for nonischemic cardiomyopathy. <DIANNE DE SANTIAGO - Last Filed: 05/07/19 15:25> Medications and Allergies Active Meds: Active Medications Acetaminophen (Tylenol) 650 mg PO Q4H PRN PRN Reason: Pain MILD(1-3)/Fever >100.5/SAMANO Aspirin (Baby Aspirin) 81 mg PO QDAY [facility] Last Admin: 05/07/19 09:29 Dose: 81 mg Documented by: Atorvastatin Calcium (Lipitor) 40 mg PO QHS [facility] Carvedilol (Coreg) 3.125 mg PO BID [facility] Last Admin: 05/07/19 10:00 Dose: Not Given Documented by: Furosemide (Lasix) 20 mg PO DAILY@0600 [facility] Heparin Sodium (Porcine) (Heparin) 5,000 unit SUB-Q Q12HR [facility] Last Admin: 05/07/19 09:29 Dose: 5,000 unit Documented by: Lorazepam (Ativan) 1 mg IV Q4H PRN PRN Reason: Agitation Morphine Sulfate (Morphine) 2 mg IV Q4H PRN PRN Reason: Pain, Moderate (4-6) Nicotine (Habitrol) 14 mg TD QDAY [facility] Last Admin: 05/07/19 09:29 Dose: 14 mg Documented by: Nitroglycerin (Nitrostat) 0.4 mg SL Q5M PRN PRN Reason: Chest Pain Ondansetron HCl (Zofran) 4 mg IV Q8H PRN PRN Reason: Nausea And Vomiting Sodium Chloride (Sodium Chloride Flush Syringe 10 Ml) 10 ml IV BID [facility] Last Admin: 05/07/19 09:30 Dose: 10 ml Documented by: Sodium Chloride (Sodium Chloride Flush Syringe 10 Ml) 10 ml IV PRN PRN PRN Reason: LINE FLUSH Physical Examination Vital Signs Temp Pulse Resp BP Pulse Ox 98.8 F 90 18 113/78 93 05/06/19 18:01 05/06/19 18:01 05/06/19 18:01 05/06/19 18:01 05/06/19 18:01 Results 05/07/19 03:10 05/07/19 03:10 Cardiac Enzymes 05/06/19 Range/Units 18:38 AST 11 (5-40) units/L Coagulation 05/06/19 Range/Units 18:38 PT 12.1 L (12.2-14.9) Sec. INR 0.90 (0.87-1.13) APTT 29.2 (24.2-36.6) Sec. Lipids 05/07/19 Range/Units 03:10 Triglycerides 39 (2-149) mg/dL Cholesterol 110 (50-199) mg/dL HDL Cholesterol 52 (40-59) mg/dL Cholesterol/HDL Ratio 2.11 % CBC 05/06/19 05/07/19 Range/Units 18:38 03:10 WBC 8.4 6.3 (4.5-11.0) K/mm3 RBC 4.70 4.27 (3.65-5.03) M/mm3 Hgb 13.8 12.4 (10.1-14.3) gm/dl Hct 41.3 37.7 (30.3-42.9) % Plt Count 177 200 (140-440) K/mm3 Lymph # 1.6 (1.2-5.4) K/mm3 Menard # 0.3 (0.0-0.8) K/mm3 Eos # 0.0 (0.0-0.4) K/mm3 Baso # 0.0 (0.0-0.1) K/mm3 Comprehensive Metabolic Panel 05/06/19 05/07/19 Range/Units 18:38 03:10 Sodium 145 142 (137-145) mmol/L Potassium 3.6 3.6 (3.6-5.0) mmol/L Chloride 105.2 102.5 (98-107) mmol/L Carbon Dioxide 19 L 20 L (22-30) mmol/L BUN 26 H 21 H (7-17) mg/dL Creatinine 1.1 0.8 (0.7-1.2) mg/dL Glucose 181 H 259 H (65-100) mg/dL Calcium 9.3 9.0 (8.4-10.2) mg/dL AST 11 (5-40) units/L ALT 13 (7-56) units/L Alkaline Phosphatase 97 (35-129) units/L Total Protein 6.9 (6.3-8.2) g/dL Albumin 4.3 (3.9-5) g/dL Assessment and Plan I seen and evaluated the patient and agree with the assessment and plan. The patient has a history of seizure disorder as well as cardiomyopathy with ejection fraction 15-20%. At this time recommend fluid and sodium restriction. Recommend strict I's and O's and daily weights. Patient will be continued on goal-directed medical therapy for treatment of dilated cardiomyopathy.
--- NOTE | 2019-05-07 11:58 | Consultation ---
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 was sitting on dinning table she started sweating and turned blue she became incoherent and will not respond to command her friend contacted EMS they advised her to place her on the floor , pt. never stiffed up or bit her tongue or wet her self . According to EMS report ptValentina chapa was wnl , she was transferred to ER CT brain was unremarkable she was still confused UDS is remarkable for amphetamin pt. denied any drug intake and she related that to albuteral inhaler ?? she still smoke 1/2 PPD since was 25ys old . she does not drink , she does not drive she denied hx of seizure or family hx of seizure, denied recreational drug intake ever !!! Past History Past Medical History: heart failure (EF 15-20%), other (Asthma, bronchitis, chronic back pain) Past Surgical History: , hysterectomy Social history: single (has a roommate), smoking (current everday smoker smokes 1/2 pack per day) Family history: no significant family history Medications and Allergies Allergies Allergy/AdvReac Type Severity Reaction Status Date / Time codeine AdvReac Hives Verified 05/06/19 19:37 Active Meds: Active Medications Acetaminophen (Tylenol) 650 mg PO Q4H PRN PRN Reason: Pain MILD(1-3)/Fever >100.5/SAMANO Aspirin (Baby Aspirin) 81 mg PO QDAY [facility] Last Admin: 05/07/19 09:29 Dose: 81 mg Documented by: Atorvastatin Calcium (Lipitor) 40 mg PO QHS [facility] Carvedilol (Coreg) 3.125 mg PO BID [facility] Furosemide (Lasix) 40 mg PO QDAY [facility] Heparin Sodium (Porcine) (Heparin) 5,000 unit SUB-Q Q12HR [facility] Last Admin: 05/07/19 09:29 Dose: 5,000 unit Documented by: Levetiracetam 500 mg/ Dextrose 105 mls @ 400 mls/hr IV Q12HR [facility] Last Admin: 05/07/19 10:53 Dose: 400 mls/hr Documented by: Lisinopril (Zestril) 2.5 mg PO QDAY [facility] Last Admin: 05/07/19 09:30 Dose: Not Given Documented by: Morphine Sulfate (Morphine) 2 mg IV Q4H PRN PRN Reason: Pain, Moderate (4-6) Nicotine (Habitrol) 14 mg TD QDAY [facility] Last Admin: 05/07/19 09:29 Dose: 14 mg Documented by: Nitroglycerin (Nitrostat) 0.4 mg SL Q5M PRN PRN Reason: Chest Pain Ondansetron HCl (Zofran) 4 mg IV Q8H PRN PRN Reason: Nausea And Vomiting Sodium Chloride (Sodium Chloride Flush Syringe 10 Ml) 10 ml IV BID [facility] Last Admin: 05/07/19 09:30 Dose: 10 ml Documented by: Sodium Chloride (Sodium Chloride Flush Syringe 10 Ml) 10 ml IV PRN PRN PRN Reason: LINE FLUSH Review of Systems Respiratory: cough, congestion, wheezing Physical Examination - Vital Signs Vital Signs: Vital Signs Temp Pulse Resp BP Pulse Ox 98.8 F 90 18 113/78 93 05/06/19 18:01 05/06/19 18:01 05/06/19 18:01 05/06/19 18:01 05/06/19 18:01 - Constitutional General appearance: comfortable - EENT EENT: Present: PERRL - Respiratory Respiratory: Present: rales, rhonchi, wheezing - Cardiovascular Cardiovascular: Present: normal S1, normal S2 Extremities: Present: no peripheral edema bilatateraly - Gastrointestinal Gastrointestinal: Present: normoactive bowel sounds - Integumentary Integumentary: Present: normal - Neurologic Cranial nerve examination: PERRL, EOMI Speech examination: intact Sensorimotor examination: intact Detailed motor examination: grossly full strength in Detailed sensory examination: intact Reflex and gait examination: intact - Psychiatric Psychiatric: Present: mood/affect appropriate Results - Laboratory Findings CBC and BMP: 05/07/19 03:10 05/07/19 03:10 Abnormal Lab Findings: Abnormal Labs 05/06/19 05/06/19 05/06/19 18:38 18:38 18:38 Seg Neutrophils % PT 12.1 L Carbon Dioxide 19 L BUN 26 H Glucose 181 H Hemoglobin A1c NT-Pro-B Natriuret Pep Salicylates < 0.3 L Acetaminophen 05/06/19 05/06/19 05/06/19 18:38 20:06 23:11 Seg Neutrophils % PT Carbon Dioxide BUN Glucose Hemoglobin A1c 7.5 H NT-Pro-B Natriuret Pep 1371 H Salicylates Acetaminophen < 5.0 L 05/07/19 05/07/19 03:10 03:10 Seg Neutrophils % 70.4 H PT Carbon Dioxide 20 L BUN 21 H Glucose 259 H Hemoglobin A1c NT-Pro-B Natriuret Pep Salicylates Acetaminophen Assessment and Plan Assessment 1-This is 59ys old female presented with episode of change mentation yesterday associated with being incoherent she turned blue and breakout sweating finding from hx and exam is remarkable for possible cardiovascular etiology and or vasovacal event seizure can not be excluded but is unlikely based on the presentation 2- Hx of non ischemic cardiomyopathy with EF 15-20% as of 3- Positive UDS for amphetamine possibly related to her albuterol ?? 4- Hx of Asthma and chronic smoking average 1/2 PPD since 25ys old. 5- She does not drive PLAN 1- EEG 2- Seizure precaution 3- Brain MRI with and without QD 4- cardiology consult noted 5- consider stop Keppra after review EEG and MRI brain D/W pt.
[2019-05-07] MEDS ORDERED: LORazepam 2 MG/ML VIAL IV PRN (15:06)
--- NOTE | 2019-05-07 15:06 | Progress Note ---
Assessment and Plan 59-year-old female with history of tobacco abuse, heart failure with EF 15-20%, chronic back pain, asthma who presents [facility] ED via EMS complaints of altered mental status and seizure. Syncope vs Seizures - no prior history of seizure in past, symptoms more likely vasovagal syncope than seizure -UDS positive for amphetamine -Pt denies amphetamine use -Neurology consulted, s/p keppra - pending MRI/EEG Acute Encephalopathy, resolved -likely secondary to syncope -cont Neuro checks -Continue supportive care - MRI report pending Acute Chest Pain -Initiated chest pain protocol -Continuous telemetry monitoring -Continue supportive care -Pain mgmt -Troponin negative x 2 , -EKG unrevealing for acute ischemic abnormalities -Hx of HF with EF 15-20% -Cardiology consulted CHF -EF of 15-20% seen on Echo on 03/07/2019 -BNP elevated at 1371 -Troponin negative 2 -CXR shows moderate cardiomegaly -Resumed HF meds (BB, ALLISON, Lasix) -Cardiology consulted HTN, accelerated - cont home meds, adjust as needed DVT PPX -on Heparin Subjective Date of service: 05/07/19 Interval history: patient seen and examined BP still running low, pt denies any chest pain Objective - Constitutional Vitals: Vital Signs - 12hr 05/07/19 05/07/19 05/07/19 04:00 04:30 07:28 Temperature 98.9 F 97.9 F Pulse Rate 105 H 100 H 95 H Respiratory 20 18 Rate Blood Pressure 91/49 90/49 O2 Sat by Pulse 91 99 Oximetry 05/07/19 05/07/19 05/07/19 09:29 09:30 10:00 Temperature Pulse Rate 95 H 78 Respiratory Rate Blood Pressure 91/53 90/53 O2 Sat by Pulse 97 Oximetry 05/07/19 05/07/19 05/07/19 11:16 12:00 14:00 Temperature 97.9 F Pulse Rate 92 H 97 H Respiratory 18 18 Rate Blood Pressure 93/61 O2 Sat by Pulse 97 Oximetry General appearance: Present: no acute distress, obese - EENT Eyes: PERRL, EOM intact ENT: hearing intact, clear oral mucosa Ears: bilateral: normal - Neck Neck: supple, normal ROM - Respiratory Respiratory effort: normal Respiratory: bilateral: CTA - Cardiovascular Rhythm: regular Heart Sounds: Present: S1 & S2. Absent: gallop, rub Extremities: pulses intact, No edema, normal color, Full ROM - Gastrointestinal General gastrointestinal: Present: soft, non-tender, non-distended, normal bowel sounds - Integumentary Integumentary: clear, warm, dry - Musculoskeletal Musculoskeletal: 1, strength equal bilaterally - Neurologic Neurologic: moves all extremities - Psychiatric Psychiatric: memory intact, appropriate mood/affect, intact judgment & insight - Labs CBC & Chem 7: 05/07/19 03:10 05/07/19 03:10 Labs: Abnormal lab results 05/06/19 05/06/19 05/06/19 Range/Units 18:02 18:38 18:38 Seg Neutrophils % (40.0-70.0) % PT 12.1 L (12.2-14.9) Sec. Carbon Dioxide 19 L (22-30) mmol/L BUN 26 H (7-17) mg/dL Glucose 181 H (65-100) mg/dL POC Glucose 174 H (70-105) Hemoglobin A1c (4-6) % NT-Pro-B Natriuret Pep (0-900) pg/mL Salicylates (2.8-20.0) mg/dL Acetaminophen (10.0-30.0) ug/mL 05/06/19 05/06/19 05/06/19 Range/Units 18:38 18:38 20:06 Seg Neutrophils % (40.0-70.0) % PT (12.2-14.9) Sec. Carbon Dioxide (22-30) mmol/L BUN (7-17) mg/dL Glucose (65-100) mg/dL POC Glucose (70-105) Hemoglobin A1c (4-6) % NT-Pro-B Natriuret Pep 1371 H (0-900) pg/mL Salicylates < 0.3 L (2.8-20.0) mg/dL Acetaminophen < 5.0 L (10.0-30.0) ug/mL 05/06/19 05/07/19 05/07/19 Range/Units 23:11 03:10 03:10 Seg Neutrophils % 70.4 H (40.0-70.0) % PT (12.2-14.9) Sec. Carbon Dioxide 20 L (22-30) mmol/L BUN 21 H (7-17) mg/dL Glucose 259 H (65-100) mg/dL POC Glucose (70-105) Hemoglobin A1c 7.5 H (4-6) % NT-Pro-B Natriuret Pep (0-900) pg/mL Salicylates (2.8-20.0) mg/dL Acetaminophen (10.0-30.0) ug/mL 05/07/19 Range/Units 11:22 Seg Neutrophils % (40.0-70.0) % PT (12.2-14.9) Sec. Carbon Dioxide (22-30) mmol/L BUN (7-17) mg/dL Glucose (65-100) mg/dL POC Glucose 151 H (70-105) Hemoglobin A1c (4-6) % NT-Pro-B Natriuret Pep (0-900) pg/mL Salicylates (2.8-20.0) mg/dL Acetaminophen (10.0-30.0) ug/mL
[2019-05-07] MEDS: FUROSEMIDE 20 MG TAB PO SCH (15:30)
--- NOTE | 2019-05-07 20:08 | Magnetic Resonance Report ---
MR brain wo/w con INDICATION / CLINICAL INFORMATION: 59 years Female; syncopeseizure hx of cardiomyopathy. TECHNIQUE: Multiplanar, multisequence MR images of the brain were obtained. Field inhomogeneity noted. Motion ar tifact. COMPARISON: CT - 05/06/2019 FINDINGS: BRAIN / INTRACRANIAL CONTENTS: No acute hemorrhage, mass effect, midline shift, hydrocephalus, or acu te, large territorial infarct. No chronic infarct or atrophy. There are mild areas of increased signa l intensity on FLAIR imaging in the white matter of the cerebral hemispheres. These are nonspecific f indings and may be related to microangiopathy (hypertension, diabetes, atherosclerosis), given the pa tient's age. I see no signs of abnormal enhancement following contrast demonstration. CRANIOCERVICAL JUNCTION: No significant abnormality. VASCULAR FLOW-VOIDS: No significant abnormality. ORBITS: No significant abnormality of visualized orbits. SINUSES / MASTOIDS: Minimal mucosal thickening seen in the ethmoids. ADDITIONAL FINDINGS: None. IMPRESSION: 1. No focal mass, hemorrhage, hydrocephalus, or acute ischemia seen on this limited exam. Signer Name: Timbo Huerta MD, III Signed: 05/07/2019 8:03 PM Workstation Name: [id number]
[2019-05-08] MEDS: ALBUTEROL 2.5 MG/3 ML NEBU IH PRN (01:15)
[2019-05-08] MEDS: FUROSEMIDE 20 MG TAB PO SCH (06:49)
--- NOTE | 2019-05-08 09:48 | Progress Note ---
Assessment and Plan - Patient Problems (1) Non-ischemic cardiomyopathy Current Visit: Yes Status: Acute Plan to address problem: Hx of Nonischemic cardiomyopathy [facility] 03/2019 at [facility]: no significant CAD, EF 15-20% Recommendations: Fluid/sodium restrictions. Continue medical therapy for nonischemic cardiomyopathy. Subjective Date of service: 05/08/19 Interval history: Patient is resting in bed comfortably. She has no cardiac complaints. Objective Vital Signs Temp Pulse Pulse Pulse Pulse Resp Resp 05/08/19 08:28 18 05/08/19 05:45 98.0 F 110 H 20 05/08/19 04:00 109 H 05/08/19 01:15 86 18 05/08/19 00:21 97.8 F 109 H 20 05/07/19 22:50 105 H 05/07/19 22:02 05/07/19 22:00 107 H 107 H 18 05/07/19 20:26 97.4 F L 107 H 20 05/07/19 20:00 109 H 05/07/19 15:47 100 H 05/07/19 14:00 18 05/07/19 12:00 97 H 05/07/19 11:16 97.9 F 92 H 18 05/07/19 10:00 78 BP BP Pulse Ox 05/08/19 08:28 05/08/19 05:45 101/63 78 L 05/08/19 04:00 05/08/19 01:15 05/08/19 00:21 106/72 94 05/07/19 22:50 94/60 05/07/19 22:02 96 05/07/19 22:00 05/07/19 20:26 94/60 96 05/07/19 20:00 05/07/19 15:47 95/58 05/07/19 14:00 05/07/19 12:00 05/07/19 11:16 93/61 97 05/07/19 10:00 90/53 - Physical Examination General: No Apparent Distress HEENT: Positive: PERRL Neck: Positive: trachea midline Cardiac: Positive: Reg Rate and Rhythm Lungs: Positive: Decreased Breath Sounds Neuro: Positive: Grossly Intact Extremities: Absent: edema
[2019-05-08] MEDS: carvediloL 3.125 MG TAB PO SCH ×2 (10:13→22:24)
[2019-05-08] MEDS: HEPARIN 5,000 UNIT/1 ML VIAL SUB-Q SCH ×2 (10:14→22:35)
[2019-05-08] MEDS: ASPIRIN 81 MG TAB CHEW PO SCH (10:14)
[2019-05-08] MEDS: NICOTINE 14 MG/24 HR PATCH TD SCH (10:14)
--- NOTE | 2019-05-08 10:23 | Progress Note ---
Assessment and Plan Assessment and plan: 59-year-old female with history of tobacco abuse, heart failure with EF 15-20%, chronic back pain, asthma was admitted through [facility] ED with history of altered mental status and seizure. Neuro work-up is negative, MRI EEG no acute findings, no new episodes of seizures Echocardiogram dilated cardiomyopathy EF of 15 to 20%, cardiology recommend LifeVest prior to discharge. Case management to assist with LifeVest Prior to discharge --Nonischemic cardiomyopathy; ejection fraction 15 to 20% On anti-failure medications Syncope in the setting of cardiomyopathy Cardiology recommend LifeVest prior to discharge Patient advised to comply with treatment plan --Acute metabolic encephalopathy; present on admission Due to syncope/seizure/postictal No new episodes of seizure Neuro work-up negative, neurology input appreciated --Syncope vs Seizures Patient has no prior history of seizure possible vasovagal syncope , UDS positive for amphetamine Neurology following, MRI negative, negative EEG Patient advised not to drive, patient may need cardiac monitoring as outpatient --Acute on chronic systolic congestive heart failure EF 15 to 20% Continue heart failure medications, diuretics, beta-blockers, ALLISON inhibitors Input output monitoring, low-sodium diet, fluid restriction Follow-up with cardiology periodically upon discharge --HTN, accelerated; moderate control Continue current antihypertensives and PRN medications --DVT prophylaxis; heparin Closely monitor and adjust management as needed Possible discharge in 1 to 2 days if stable and cleared by cardiology Plan of care reviewed with the patient and his nurse History Interval history: Patient seen and examined medical records reviewed No new episodes of syncope or seizure Neuro work-up is in progress Neurology following Patient complaints dizziness and unsteady gait vital signs reviewed Hospitalist Physical - Constitutional Vitals: Temp Pulse Resp BP Pulse Ox 98.0 F 106 H 18 108/68 78 L 05/08/19 05:45 05/08/19 10:13 05/08/19 08:28 05/08/19 10:13 05/08/19 05:45 General appearance: Present: no acute distress, well-nourished, obese - EENT Eyes: Present: PERRL, EOM intact - Neck Neck: Present: supple, normal ROM - Respiratory Respiratory effort: normal Respiratory: bilateral: diminished, rales, negative: rhonchi, wheezing - Cardiovascular Rhythm: regular Heart Sounds: Present: S1 & S2 - Extremities Extremities: no ischemia, No edema - Abdominal General gastrointestinal: soft, non-tender, non-distended, normal bowel sounds - Integumentary Integumentary: Present: clear, warm - Psychiatric Psychiatric: appropriate mood/affect, cooperative - Neurologic Neurologic: CNII-XII intact, moves all extremities Results - Labs CBC & Chem 7: 05/07/19 03:10 05/07/19 03:10 Labs: Laboratory Last Values WBC 6.3 K/mm3 (4.5-11.0) 05/07/19 03:10 RBC 4.27 M/mm3 (3.65-5.03) 05/07/19 03:10 Hgb 12.4 gm/dl (10.1-14.3) 05/07/19 03:10 Hct 37.7 % (30.3-42.9) 05/07/19 03:10 MCV 88 fl (79-97) 05/07/19 03:10 MCH 29 pg (28-32) 05/07/19 03:10 MCHC 33 % (30-34) 05/07/19 03:10 RDW 14.5 % (13.2-15.2) 05/07/19 03:10 Plt Count 200 K/mm3 (140-440) 05/07/19 03:10 Lymph % (Auto) 24.6 % (13.4-35.0) 05/07/19 03:10 [place] % (Auto) 4.3 % (0.0-7.3) 05/07/19 03:10 Eos % (Auto) 0.2 % (0.0-4.3) 05/07/19 03:10 Baso % (Auto) 0.5 % (0.0-1.8) 05/07/19 03:10 Lymph # 1.6 K/mm3 (1.2-5.4) 05/07/19 03:10 [place] # 0.3 K/mm3 (0.0-0.8) 05/07/19 03:10 Eos # 0.0 K/mm3 (0.0-0.4) 05/07/19 03:10 Baso # 0.0 K/mm3 (0.0-0.1) 05/07/19 03:10 Seg Neutrophils % 70.4 % (40.0-70.0) H 05/07/19 03:10 Seg Neutrophils # 4.5 K/mm3 (1.8-7.7) 05/07/19 03:10 PT 12.1 Sec. (12.2-14.9) L 05/06/19 18:38 INR 0.90 (0.87-1.13) 05/06/19 18:38 APTT 29.2 Sec. (24.2-36.6) 05/06/19 18:38 D-Dimer 199.30 ng/mlDDU (0-234) 05/06/19 18:38 Sodium 142 mmol/L (137-145) 05/07/19 03:10 Potassium 3.6 mmol/L (3.6-5.0) 05/07/19 03:10 Chloride 102.5 mmol/L (98-107) 05/07/19 03:10 Carbon Dioxide 20 mmol/L (22-30) L 05/07/19 03:10 Anion Gap 23 mmol/L 05/07/19 03:10 BUN 21 mg/dL (7-17) H 05/07/19 03:10 Creatinine 0.8 mg/dL (0.7-1.2) 05/07/19 03:10 Estimated GFR > 60 ml/min 05/07/19 03:10 BUN/Creatinine Ratio 26 % 05/07/19 03:10 Glucose 259 mg/dL (65-100) H 05/07/19 03:10 POC Glucose 151 (70-105) H 05/07/19 11:22 Hemoglobin A1c 7.5 % (4-6) H 05/06/19 23:11 Calcium 9.0 mg/dL (8.4-10.2) 05/07/19 03:10 Magnesium 2.00 mg/dL (1.7-2.3) 05/06/19 18:38 Total Bilirubin 0.30 mg/dL (0.1-1.2) 05/06/19 18:38 AST 11 units/L (5-40) 05/06/19 18:38 ALT 13 units/L (7-56) 05/06/19 18:38 Alkaline Phosphatase 97 units/L (35-129) 05/06/19 18:38 Ammonia 57.0 umol/L (25-60) 05/06/19 18:38 Total Creatine Kinase 86 units/L (30-135) 05/06/19 18:38 Troponin T < 0.010 ng/mL (0.00-0.029) 05/07/19 00:24 NT-Pro-B Natriuret Pep 1371 pg/mL (0-900) H 05/06/19 20:06 Total Protein 6.9 g/dL (6.3-8.2) 05/06/19 18:38 Albumin 4.3 g/dL (3.9-5) 05/06/19 18:38 Albumin/Globulin Ratio 1.7 % 05/06/19 18:38 Triglycerides 39 mg/dL (2-149) 05/07/19 03:10 Cholesterol 110 mg/dL (50-199) 05/07/19 03:10 LDL Cholesterol Direct 57 mg/dL (50-130) 05/07/19 03:10 HDL Cholesterol 52 mg/dL (40-59) 05/07/19 03:10 Cholesterol/HDL Ratio 2.11 % 05/07/19 03:10 TSH 0.492 mlU/mL (0.270-4.200) 05/06/19 18:38 Urine Color Yellow (Yellow) 05/06/19 18:19 Urine Turbidity Clear (Clear) 05/06/19 18:19 Urine pH 5.0 (5.0-7.0) 05/06/19 18:19 Ur Specific [place] 1.021 (1.003-1.030) 05/06/19 18:19 Urine Protein <15 mg/dl mg/dL (Negative) 05/06/19 18:19 Urine Glucose (UA) Neg mg/dL (Negative) 05/06/19 18:19 Urine Ketones Neg mg/dL (Negative) 05/06/19 18:19 Urine Blood Neg (Negative) 05/06/19 18:19 Urine Nitrite Neg (Negative) 05/06/19 18:19 Urine Bilirubin Neg (Negative) 05/06/19 18: Urine Urobilinogen 2.0 mg/dL (<2.0) 05/06/19 18:19 Ur Leukocyte Esterase Neg (Negative) 05/06/19 18:19 Urine WBC (Auto) 1.0 /HPF (0.0-6.0) 05/06/19 18:19 Urine RBC (Auto) 1.0 /HPF (0.0-6.0) 05/06/19 18:19 U Epithel Cells (Auto) 1.0 /HPF (0-13.0) 05/06/19 18:19 Hyaline Casts 1 /LPF 05/06/19 18:19 Urine Mucus Few /HPF 05/06/19 18:19 Salicylates < 0.3 mg/dL (2.8-20.0) L 05/06/19 18:38 Urine Opiates Screen Presumptive negative 05/06/19 18:19 Urine Methadone Screen Presumptive negative 05/06/19 18:19 Acetaminophen < 5.0 ug/mL (10.0-30.0) L 05/06/19 18:38 Ur Barbiturates Screen Presumptive negative 05/06/19 18:19 Ur Phencyclidine Scrn Presumptive negative 05/06/19 18:19 Ur Amphetamines Screen Presumptive positive 05/06/19 18:19 U Benzodiazepines Scrn Presumptive negative 05/06/19 18:19 Urine Cocaine Screen Presumptive negative 05/06/19 18:19 U Marijuana (THC) Screen Presumptive negative 05/06/19 18:19 Drugs of Abuse Note Disclamer 05/06/19 18:19 Plasma/Serum Alcohol < 0.01 % (0-0.07) 05/06/19 18:38 Active Medications - Current Medications Current Medications: Generic Name Dose Route Start Last Admin Trade Name Freq PRN Reason Stop Dose Admin Acetaminophen 650 mg 05/06/19 22:13 Tylenol PO Q4H PRN Pain MILD(1-3)/Fever >100.5/SAMANO Albuterol 2.5 mg 05/08/19 00:01 05/08/19 01:15 Proventil IH 2.5 mg Q4HRT PRN Administration Shortness Of Breath Aspirin 81 mg 05/07/19 10:00 05/08/19 10:14 Baby Aspirin PO 81 mg QDAY LARY Administration Atorvastatin Calcium 40 mg 05/07/19 22:00 05/07/19 22:50 Lipitor PO 40 mg QHS LARY Administration Carvedilol 3.125 mg 05/07/19 10:00 05/08/19 10:13 Coreg PO 3.125 mg BID [facility]ARY Administration Furosemide 20 mg 05/07/19 14:30 05/08/19 06:49 Lasix PO 20 mg DAILY@0600 LARY Administration Heparin Sodium (Porcine) 5,000 unit 05/07/19 10:00 05/08/19 10:14 Heparin SUB-Q 5,000 unit Q12HR [facility]ARY Administration Lorazepam 1 mg 05/07/19 15:06 05/07/19 15:39 Ativan IV 1 mg Q4H PRN Administration Agitation Morphine Sulfate 2 mg 05/06/19 22:15 Morphine IV Q4H PRN Pain, Moderate (4-6) Nicotine 14 mg 05/07/19 10:00 05/08/19 10:14 Habitrol TD 14 mg QDAY [facility]ARY Administration Nitroglycerin 0.4 mg 05/06/19 22:15 Nitrostat SL Q5M PRN Chest Pain Ondansetron HCl 4 mg 05/06/19 22:13 Zofran IV Q8H PRN Nausea And Vomiting Sodium Chloride 10 ml 05/07/19 10:00 05/08/19 10:14 Sodium Chloride Flush Syringe 10 Ml IV 10 ml BID [facility]ARY Administration Sodium Chloride 10 ml 05/06/19 22:13 Sodium Chloride Flush Syringe 10 Ml IV PRN PRN LINE FLUSH
[2019-05-08] MEDS ORDERED: ALBUTEROL 2.5 MG/3 ML NEBU IH ONE (12:00)
--- NOTE | 2019-05-08 15:34 | Progress Note ---
Assessment and Plan Assessment 1-This is 59ys old female presented with episode of change mentation yesterday associated with being incoherent she turned blue and breakout sweating finding from hx and exam is remarkable for possible cardiovascular etiology and or vasovacal event seizure can not be excluded but is unlikely based on the presentation 2- Hx of non ischemic cardiomyopathy with EF 15-20% as of 3- Positive UDS for amphetamine possibly related to her albuterol ?? 4- Hx of Asthma and chronic smoking average 1/2 PPD since 25ys old. 5- She does not drive PLAN 1- EEG will review today 2- Seizure precaution 3- Brain MRI with and without QD is unremarkable 4- cardiology consult noted need ekg monitor tech 5- Off Tae D/W pt. to follow up with cardiology Subjective Date of service: 05/08/19 Principal diagnosis: syncopy Objective - Vital Sign Vital Signs - 12 05/08/19 05/08/19 05/08/19 04:00 05:45 05:57 Temperature 98.0 F 98.0 F Pulse Rate 109 H 110 H 100 H Pulse Rate [ Bilateral Throughout] Respiratory 20 18 Rate Respiratory Rate [Bilateral Throughout] Blood Pressure 101/63 112/45 Blood Pressure [Right] O2 Sat by Pulse 78 L 99 Oximetry 05/08/19 05/08/19 05/08/19 08:28 09:24 10:13 Temperature 97.6 F Pulse Rate 102 H 106 H Pulse Rate [ Bilateral Throughout] Respiratory 18 18 Rate Respiratory Rate [Bilateral Throughout] Blood Pressure 108/68 108/68 Blood Pressure [Right] O2 Sat by Pulse 94 Oximetry 05/08/19 05/08/19 05/08/19 12:00 12:17 13:58 Temperature 98.2 F Pulse Rate 104 H 104 H Pulse Rate [ 118 H Bilateral Throughout] Respiratory 18 Rate Respiratory 18 Rate [Bilateral Throughout] Blood Pressure Blood Pressure 90/61 [Right] O2 Sat by Pulse 100 Oximetry - General Apperance Constitutional: comfortable - EENT EENT: PERRL - Respiratory Respiratory: chest non-tender - Cardiovascular Cardiovascular: regular rate Extremities: no peripheral edema bilat - Gastrointestinal Gastrointestinal: normoactive bowel sounds - Integumentary Integumentary: normal - Neurologic Detailed motor examination: grossly full strength in Detailed sensory examination: intact Reflex and gait examination: intact - Psychiatric Psychiatric: mood/affect appropriate, cooperative - Laboratory Findings CBC and BMP: 05/07/19 03:10 05/07/19 03:10 Abnormal Lab Findings: Abnormal Labs 05/06/19 05/06/19 05/06/19 18:02 18:38 18:38 Seg Neutrophils % PT 12.1 L Carbon Dioxide 19 L BUN 26 H Glucose 181 H POC Glucose 174 H Hemoglobin A1c NT-Pro-B Natriuret Pep Salicylates Acetaminophen 05/06/19 05/06/19 05/06/19 18:38 18:38 20:06 Seg Neutrophils % PT Carbon Dioxide BUN Glucose POC Glucose Hemoglobin A1c NT-Pro-B Natriuret Pep 1371 H Salicylates < 0.3 L Acetaminophen < 5.0 L 05/06/19 05/07/19 05/07/19 23:11 03:10 03:10 Seg Neutrophils % 70.4 H PT Carbon Dioxide 20 L BUN 21 H Glucose 259 H POC Glucose Hemoglobin A1c 7.5 H NT-Pro-B Natriuret Pep Salicylates Acetaminophen 05/07/19 11:22 Seg Neutrophils % PT Carbon Dioxide BUN Glucose POC Glucose 151 H Hemoglobin A1c NT-Pro-B Natriuret Pep Salicylates Acetaminophen
--- NOTE | 2019-05-08 15:57 | Electroencephalogram Report ---
Electroencephalogram EEG Date of exam: 05/08/19 History: Syncopy Description: The waking background shows an appropriate organization with well-defined anterior posterior voltage and frequency gradients. Posteriorly, there is a well-developed alpha rhythm of [8 ] Hz which is symmetrical and bilaterally reactive. Anteriorly, there is a pattern of lower voltage and slightly irregular theta and beta range frequencies. During drowsiness, there is attenuation of the background rhythms. No sleep was noted Throughout, the recording there are no epileptiform abnormalities, focal or lateralizing features, or significant interhemispheric findings. Interpretation: This is a normal awak , and drowsy record If clinically indicated repeat study sleep deprived is in order.
[2019-05-09] MEDS: MORPHINE 2 MG/1 ML INJ IV PRN ×3 (02:38→22:23)
[2019-05-09] MEDS: FUROSEMIDE 20 MG TAB PO SCH (06:32)
[2019-05-09] MEDS: ALBUTEROL 2.5 MG/3 ML NEBU IH PRN (08:05)
[2019-05-09] MEDS: NICOTINE 14 MG/24 HR PATCH TD SCH (10:09)
[2019-05-09] MEDS: ASPIRIN 81 MG TAB CHEW PO SCH (10:09)
[2019-05-09] MEDS: carvediloL 3.125 MG TAB PO SCH ×2 (10:09→21:52)
[2019-05-09] MEDS: HEPARIN 5,000 UNIT/1 ML VIAL SUB-Q SCH ×2 (10:10→21:52)
--- NOTE | 2019-05-09 10:22 | Progress Note ---
Assessment and Plan Syncope Recently diagnosed nonischemic cardiomyopathy, [facility] 03/2019 at [facility]: no significant CAD, EF 15-20% Tobacco abuse Hx of Asthma Recommendations: Fluid/sodium restriction. Continue medical therapy for nonischemic cardiomyopathy. LifeVest monitoring before discharge. Subjective Date of service: 05/09/19 Principal diagnosis: syncopy Interval history: Patient has no cardiac complaints. No cardiac events reported on telemetry overnight. She awaits lifevest placement. Objective Vital Signs Temp Pulse Pulse Resp Resp BP BP 05/09/19 10:09 104 H 109/64 05/09/19 09:00 97 H 05/09/19 08:52 20 05/09/19 07:27 97.7 F 107 H 20 106/77 05/09/19 03:56 98.0 F 103 H 18 107/71 05/09/19 02:38 18 05/09/19 00:43 20 05/08/19 23:40 98.0 F 87 18 132/52 05/08/19 23:36 98.4 F 105 H 18 94/44 05/08/19 22:00 05/08/19 20:21 98.2 F 105 H 20 86/54 05/08/19 20:15 104 H 05/08/19 17:06 97.9 F 18 05/08/19 17:03 97.9 F 106 H 18 107/72 05/08/19 13:58 118 H 18 05/08/19 12:17 98.2 F 104 H 18 90/61 05/08/19 12:00 104 H Pulse Ox 05/09/19 10:09 05/09/19 09:00 05/09/19 08:52 05/09/19 07:27 96 05/09/19 03:56 93 05/09/19 02:38 05/09/19 00:43 05/08/19 23:40 99 05/08/19 23:36 96 05/08/19 22:00 94 05/08/19 20:21 94 05/08/19 20:15 05/08/19 17:06 05/08/19 17:03 94 05/08/19 13:58 05/08/19 12:17 100 05/08/19 12:00 - Physical Examination General: No Apparent Distress HEENT: Positive: PERRL Neck: Positive: trachea midline Cardiac: Positive: Reg Rate and Rhythm Lungs: Positive: Decreased Breath Sounds Neuro: Positive: Grossly Intact Extremities: Absent: edema
--- NOTE | 2019-05-09 11:51 | Progress Note ---
Assessment and Plan Assessment and plan: 59-year-old female with history of tobacco abuse, heart failure with EF 15-20%, chronic back pain, asthma was admitted through [facility] with history of altered mental status and seizure. --Acute metabolic encephalopathy; present on admission Due to syncope/seizure/postictal Patient is more alert and awake today cont Neuro checks, Neuro work-up in progress --Syncope vs Seizures Patient has no prior history of seizure possible vasovagal syncope , UDS positive for amphetamine Neurology following, MRI negative,Follow EEG Patient advised not to drive --Nonischemic cardiomyopathy; ejection fraction 15 to 20% Cardiology recommend LifeVest prior to discharge Patient strongly advised to comply with anti-failure medications diet and follow-up visits --Acute on chronic systolic congestive heart failure EF 15 to 20% diuretics, beta-blockers, ALLISON inhibitors Input output monitoring, low-sodium diet, fluid restriction Follow-up with cardiology periodically upon discharge --HTN, accelerated; moderate control Continue current antihypertensives and PRN medications --DVT prophylaxis; heparin Closely monitor and adjust management as needed Possible discharge in 1 to 2 days if stable and cleared by cardiology Plan of care reviewed with the patient and his nurse History Interval history: Patient seen and examined medical records reviewed No new events reported by the nursing Cardiology recommend LifeVest prior to discharge Case management to assist with LifeVest Patient has mild shortness of breath Denies chest pain Vital signs noted Hospitalist Physical - Constitutional Vitals: Temp Pulse Resp BP Pulse Ox 97.7 F 104 H 20 109/64 96 05/09/19 07:27 05/09/19 10:05/09/19 08:52 05/09/19 10:05/09/19 07:27 General appearance: Present: mild distress, well-nourished, obese - EENT Eyes: Present: PERRL, EOM intact - Neck Neck: Present: supple, normal ROM - Respiratory Respiratory effort: normal Respiratory: bilateral: diminished, rales, negative: rhonchi, wheezing - Cardiovascular Rhythm: regular Heart Sounds: Present: S1 & S2 - Extremities Extremities: no ischemia, pulses intact - Abdominal General gastrointestinal: soft, non-tender, non-distended, normal bowel sounds - Integumentary Integumentary: Present: clear, warm - Psychiatric Psychiatric: appropriate mood/affect, cooperative - Neurologic Neurologic: CNII-XII intact, moves all extremities Results - Labs CBC & Chem 7: 05/07/19 03:10 05/07/19 03:10 Labs: Laboratory Last Values WBC 6.3 K/mm3 (4.5-11.0) 05/07/19 03:10 RBC 4.27 M/mm3 (3.65-5.03) 05/07/19 03:10 Hgb 12.4 gm/dl (10.1-14.3) 05/07/19 03:10 Hct 37.7 % (30.3-42.9) 05/07/19 03:10 MCV 88 fl (79-97) 05/07/19 03:10 MCH 29 pg (28-32) 05/07/19 03:10 MCHC 33 % (30-34) 05/07/19 03:10 RDW 14.5 % (13.2-15.2) 05/07/19 03:10 Plt Count 200 K/mm3 (140-440) 05/07/19 03:10 Lymph % (Auto) 24.6 % (13.4-35.0) 05/07/19 03:10 [place] % (Auto) 4.3 % (0.0-7.3) 05/07/19 03:10 Eos % (Auto) 0.2 % (0.0-4.3) 05/07/19 03:10 Baso % (Auto) 0.5 % (0.0-1.8) 05/07/19 03:10 Lymph # 1.6 K/mm3 (1.2-5.4) 05/07/19 03:10 [place] # 0.3 K/mm3 (0.0-0.8) 05/07/19 03:10 Eos # 0.0 K/mm3 (0.0-0.4) 05/07/19 03:10 Baso # 0.0 K/mm3 (0.0-0.1) 05/07/19 03:10 Seg Neutrophils % 70.4 % (40.0-70.0) H 05/07/19 03:10 Seg Neutrophils # 4.5 K/mm3 (1.8-7.7) 05/07/19 03:10 PT 12.1 Sec. (12.2-14.9) L 05/06/19 18:38 INR 0.90 (0.87-1.13) 05/06/19 18:38 APTT 29.2 Sec. (24.2-36.6) 05/06/19 18:38 D-Dimer 199.30 ng/mlDDU (0-234) 05/06/19 18:38 Sodium 142 mmol/L (137-145) 05/07/19 03:10 Potassium 3.6 mmol/L (3.6-5.0) 05/07/19 03:10 Chloride 102.5 mmol/L (98-107) 05/07/19 03:10 Carbon Dioxide 20 mmol/L (22-30) L 05/07/19 03:10 Anion Gap 23 mmol/L 05/07/19 03:10 BUN 21 mg/dL (7-17) H 05/07/19 03:10 Creatinine 0.8 mg/dL (0.7-1.2) 05/07/19 03:10 Estimated GFR > 60 ml/min 05/07/19 03:10 BUN/Creatinine Ratio 26 % 05/07/19 03:10 Glucose 259 mg/dL (65-100) H 05/07/19 03:10 POC Glucose 151 (70-105) H 05/07/19 11:22 Hemoglobin A1c 7.5 % (4-6) H 05/06/19 23:11 Calcium 9.0 mg/dL (8.4-10.2) 05/07/19 03:10 Magnesium 2.00 mg/dL (1.7-2.3) 05/06/19 18:38 Total Bilirubin 0.30 mg/dL (0.1-1.2) 05/06/19 18:38 AST 11 units/L (5-40) 05/06/19 18:38 ALT 13 units/L (7-56) 05/06/19 18:38 Alkaline Phosphatase 97 units/L (35-129) 05/06/19 18:38 Ammonia 57.0 umol/L (25-60) 05/06/19 18:38 Total Creatine Kinase 86 units/L (30-135) 05/06/19 18:38 Troponin T < 0.010 ng/mL (0.00-0.029) 05/07/19 00:24 NT-Pro-B Natriuret Pep 1371 pg/mL (0-900) H 05/06/19 20:06 Total Protein 6.9 g/dL (6.3-8.2) 05/06/19 18:38 Albumin 4.3 g/dL (3.9-5) 05/06/19 18:38 Albumin/Globulin Ratio 1.7 % 05/06/19 18:38 Triglycerides 39 mg/dL (2-149) 05/07/19 03:10 Cholesterol 110 mg/dL (50-199) 05/07/19 03:10 LDL Cholesterol Direct 57 mg/dL (50-130) 05/07/19 03:10 HDL Cholesterol 52 mg/dL (40-59) 05/07/19 03:10 Cholesterol/HDL Ratio 2.11 % 05/07/19 03:10 TSH 0.492 mlU/mL (0.270-4.200) 05/06/19 18:38 Urine Color Yellow (Yellow) 05/06/19 18:19 Urine Turbidity Clear (Clear) 05/06/19 18:19 Urine pH 5.0 (5.0-7.0) 05/06/19 18:19 Ur Specific Crane 1.021 (1.003-1.030) 05/06/19 18:19 Urine Protein <15 mg/dl mg/dL (Negative) 05/06/19 18:19 Urine Glucose (UA) Neg mg/dL (Negative) 05/06/19 18:19 Urine Ketones Neg mg/dL (Negative) 05/06/19 18:19 Urine Blood Neg (Negative) 05/06/19 18:19 Urine Nitrite Neg (Negative) 05/06/19 18:19 Urine Bilirubin Neg (Negative) 05/06/19 18:19 Urine Urobilinogen 2.0 mg/dL (<2.0) 05/06/19 18:19 Ur Leukocyte Esterase Neg (Negative) 05/06/19 18:19 Urine WBC (Auto) 1.0 /HPF (0.0-6.0) 05/06/19 18:19 Urine RBC (Auto) 1.0 /HPF (0.0-6.0) 05/06/19 18:19 U Epithel Cells (Auto) 1.0 /HPF (0-13.0) 05/06/19 18:19 Hyaline Casts 1 /LPF 05/06/19 18:19 Urine Mucus Few /HPF 05/06/19 18:19 Salicylates < 0.3 mg/dL (2.8-20.0) L 05/06/19 18:38 Urine Opiates Screen Presumptive negative 05/06/19 18:19 Urine Methadone Screen Presumptive negative 05/06/19 18:19 Acetaminophen < 5.0 ug/mL (10.0-30.0) L 05/06/19 18:38 Ur Barbiturates Screen Presumptive negative 05/06/19 18:19 Ur Phencyclidine Scrn Presumptive negative 05/06/19 18:19 Ur Amphetamines Screen Presumptive positive 05/06/19 18:19 U Benzodiazepines Scrn Presumptive negative 05/06/19 18:19 Urine Cocaine Screen Presumptive negative 05/06/19 18:19 U Marijuana (THC) Screen Presumptive negative 05/06/19 18:19 Drugs of Abuse Note Disclamer 05/06/19 18:19 Plasma/Serum Alcohol < 0.01 % (0-0.07) 05/06/19 18:38 Active Medications - Current Medications Current Medications: Generic Name Dose Route Start Last Admin Trade Name Freq PRN Reason Stop Dose Admin Acetaminophen 650 mg 05/06/19 22:13 Tylenol PO Q4H PRN Pain MILD(1-3)/Fever >100.5/SAMANO Albuterol 2.5 mg 05/08/19 00:01 05/09/19 08:05 Proventil IH 2.5 mg Q4HRT PRN Administration Shortness Of Breath Aspirin 81 mg 05/07/19 10:00 05/09/19 10:09 Baby Aspirin PO 81 mg QDAY LARY Administration Atorvastatin Calcium 40 mg 05/07/19 22:00 05/08/19 22:35 Lipitor PO 40 mg QHS LARY Administration Carvedilol 3.125 mg 05/07/19 10:00 05/09/19 10:09 Coreg PO 3.125 mg BID LARY Administration Furosemide 20 mg 05/07/19 14:30 05/09/19 06:32 Lasix PO 20 mg DAILY@0600 LRAY Administration Heparin Sodium (Porcine) 5,000 unit 05/07/19 10:00 05/09/19 10:10 Heparin SUB-Q 5,000 unit Q12HR LARY Administration Lorazepam 1 mg 05/07/19 15:06 05/07/19 15:39 Ativan IV 1 mg Q4H PRN Administration Agitation Morphine Sulfate 2 mg 05/06/19 22:15 05/09/19 07:58 Morphine IV 2 mg Q4H PRN Administration Pain, Moderate (4-6) Nicotine 14 mg 05/07/19 10:00 05/09/19 10:09 Habitrol TD 14 mg QDAY LARY Administration Nitroglycerin 0.4 mg 05/06/19 22:15 Nitrostat SL Q5M PRN Chest Pain Ondansetron HCl 4 mg 05/06/19 22:13 Zofran IV Q8H PRN Nausea And Vomiting Sodium Chloride 10 ml 05/07/19 10:00 05/09/19 10:10 Sodium Chloride Flush Syringe 10 Ml IV 10 ml BID LARY Administration Sodium Chloride 10 ml 05/06/19 22:13 Sodium Chloride Flush Syringe 10 Ml IV PRN PRN LINE FLUSH
[2019-05-10] MEDS: FUROSEMIDE 20 MG TAB PO SCH (05:31)
[2019-05-10] MEDS: ALBUTEROL 2.5 MG/3 ML NEBU IH PRN (07:56)
--- NOTE | 2019-05-10 09:11 | Progress Note ---
Assessment and Plan I seen and evaluated the patient and agree with the assessment and plan. The patient has a history of seizure disorder as well as cardiomyopathy with ejection fraction 15-20%. At this time recommend fluid and sodium restriction. Recommend strict I's and O's and daily weights. Patient will be continued on goal-directed medical therapy for treatment of dilated cardiomyopathy. Syncope Recently diagnosed nonischemic cardiomyopathy, [facility] 03/2019 at [facility]: no significant CAD, EF 15-20% Tobacco abuse Hx of Asthma Recommendations: Fluid/sodium restriction. Continue medical therapy for nonischemic cardiomyopathy. LifeVest placed Patient may be discharged from the cardiac standpoint with follow up in 1 week in the outpatient clinic. Subjective Date of service: 05/10/19 Principal diagnosis: syncopy Interval history: No acute events. Resting comfortably. No chest pain or SOB. Objective Vital Signs Temp Pulse Pulse Resp Resp BP Pulse Ox 05/10/19 08:56 99 H 18 95 05/10/19 00:16 98.3 F 107 H 18 87/48 87 05/09/19 21:24 97 05/09/19 21:00 98.0 F 96 H 18 88/61 95 05/09/19 20:00 20 05/09/19 15:51 98.2 F 104 H 24 98/71 97 05/09/19 12:31 98.2 F 99 H 18 103/67 100 05/09/19 10:09 104 H 109/64 - Physical Examination General: No Apparent Distress HEENT: Positive: PERRL Neck: Positive: trachea midline Neuro: Positive: Grossly Intact Extremities: Absent: edema
[2019-05-10] MEDS: ASPIRIN 81 MG TAB CHEW PO SCH (09:39)
[2019-05-10] MEDS: carvediloL 3.125 MG TAB PO SCH (09:39)
[2019-05-10] MEDS: NICOTINE 14 MG/24 HR PATCH TD SCH (09:40)
[2019-05-10] MEDS: HEPARIN 5,000 UNIT/1 ML VIAL SUB-Q SCH (09:40)
[2019-05-10 09:42] VITALS: BP 111/68
[2019-05-10] MEDS: MORPHINE 2 MG/1 ML INJ IV PRN (09:45)
--- NOTE | 2019-05-10 11:50 | Discharge Summary ---
Providers - Providers Date of Admission: 05/07/19 14:20 Date of discharge: 05/10/19 Attending physician: EVELIO BOYD 05/06/19 22:13 Occupational Therapy Evaluate and Treat [CONS] Routine Comment: Reason For Exam: Neuro deficits Physical Therapy Evaluation and Treat [CONS] Routine Comment: Reason For Exam: Neuro deficits 05/06/19 22:15 Consult to Physician [CONS] Routine Comment: Consulting Provider: VONNIE PRESLEY Physician Instructions: Reason For Exam: seizure 05/06/19 22:43 Consult to Physician [CONS] Routine Comment: Consulting Provider: BIANCA SELF Physician Instructions: Reason For Exam: c/o chest pain, recently diagonsed c CHF Primary care physician: CERAM[facility] PAINTER Hospitalization Reason for admission: alternatively of consciousness or syncope/ Condition: Serious Pertinent studies: CT head without contrast CT cervical spine MRI brain Chest x-ray EEG Cardiology consult Neurology consult Hospital course: 59-year-old female with history of tobacco abuse, heart failure with EF 15-20%, chronic back pain, asthma was admitted through [facility] with history of altered mental status and seizure. --Acute metabolic encephalopathy; present on admission Due to syncope/seizure/postictal Patient is more alert and awake today cont Neuro checks, Neuro work-up in progress --Syncope vs Seizures Patient has no prior history of seizure possible vasovagal syncope , UDS positive for amphetamine Neurology following, MRI negative,Follow EEG Patient advised not to drive --Nonischemic cardiomyopathy; ejection fraction 15 to 20% Patient received LifeVest . Patient strongly advised to comply with anti-failure medications diet and follow-up visits --Acute on chronic systolic congestive heart failure EF 15 to 20% diuretics, beta-blockers, ALLISON inhibitors Input output monitoring, low-sodium diet, fluid restriction Follow-up with cardiology periodically upon discharge --HTN, accelerated; moderate control Continue current antihypertensives and PRN medications --Ongoing tobacco use; smoking cessation and nicotine patch as needed --DVT prophylaxis; heparin Patient received LifeVest yesterday Stable for discharge Disposition: TO HOME OR SELFCARE Time spent for discharge: 32 min Core Measure Documentation - Palliative Care Palliative Care/ Comfort Measures: Not Applicable - Core Measures Any of the following diagnoses?: heart failure - Heart Failure Discharge Requirements ALLISON/ARB for LVSD if EF <40%: Yes Beta lady at discharge: Yes Exam - Constitutional Vitals: Temp Pulse Resp BP Pulse Ox 98.3 F 108 H 18 111/68 95 05/10/19 07:47 05/10/19 09:39 05/10/19 08:56 05/10/19 09:39 05/10/19 08:56 General appearance: Present: no acute distress, well-nourished - EENT Eyes: Present: PERRL, EOM intact - Neck Neck: Present: supple, normal ROM - Respiratory Respiratory effort: normal Respiratory: bilateral: diminished, negative: rales, rhonchi, wheezing - Cardiovascular Rhythm: regular Heart Sounds: Present: S1 & S2 - Extremities Extremities: no ischemia, No edema - Abdominal General gastrointestinal: Present: soft, non-tender, non-distended, normal bowel sounds - Integumentary Integumentary: Present: clear, warm - Musculoskeletal Musculoskeletal: strength equal bilaterally - Psychiatric Psychiatric: appropriate mood/affect, cooperative - Neurologic Neurologic: CNII-XII intact, moves all extremities Plan Activity: advance as tolerated, fall precautions Diet: low salt, other (cardiac diet) Special Instructions: restrict fluid intake to (less than 1200 mL per 24 hours), smoking cessation Additional Instructions: Advised to comply with medications and diet. Low-salt diet. Smoking cessation. Advised use life vest as per instructions. If you have chest pain or shortness of breath contact M.D. or go to emergency room Follow up with: PRIMARY CARE, [Primary Care Provider] - 7 Days DIANNE DE SANTIAGO MD [Staff Physician] - 7 Days Prescriptions: Aspirin [Aspirin BABY CHEW TAB] 81 mg PO QDAY #30 tab.chew carvediloL [Coreg] 3.125 mg PO BID #60 tablet Nicotine [Habitrol] 14 mg TD QDAY #30 patch Furosemide [Lasix TAB] 40 mg PO DAILY #30 Lisinopril [Zestril TAB] 2.5 mg PO QDAY #30 tab
[2019-05-10] MEDS ORDERED: ALBUTEROL 2.5 MG/3 ML NEBU IH SCH (14:00)
[2019-05-11] MEDS ORDERED: LISINOPRIL 5 MG TAB PO SCH (10:00)
== END 2019-05-10 15:34 | disposition home or self-care (01) | DRG 100 ==
LOC: ED 17:54 → 4A 22:17 → OBSVTOIN 05-07 14:20
PROVIDERS: ADMIT Internal Medicine; ATTEND Internal Medicine
DX: G40.802 Other epilepsy, not intractable, without status epilepticus (principal); G93.41 Metabolic encephalopathy; I50.23 Acute on chronic systolic (congestive) heart failure; I42.8 Other cardiomyopathies; G89.29 Other chronic pain; M54.9 Dorsalgia, unspecified; J45.909 Unspecified asthma, uncomplicated; R55 Syncope and collapse; I11.0 Hypertensive heart disease with heart failure; F17.200 Nicotine dependence, unspecified, uncomplicated; Z71.6 Tobacco abuse counseling; Z90.710 Acquired absence of both cervix and uterus; Z88.5 Allergy status to narcotic agent
CPT/HCPCS: 36415; 70450; 70553; 71045; 72125; 80048; 80053; 80061; 80307; 80320; 81001; 82140; 82550; 82962; 83036; 83735; 83880; 84443; 84484; 85025; 85027; 85379; 85610; 85730; 93005; 93010; 94640; 94760; 95819; 99406; G0378; A9270-GY; A9577; G0480; J1644; J1953; J2060; J2270; J2405; J7050